=== PATIENT | female | born 1940 | race Caucasian/White ===

== ENCOUNTER → 2017-06-28 10:27 | Outpatient (CLI) | payer MEDICARE, SELFPAY ==
[2017-06-28 10:49] LABS: Basophils % 0.3 % (0.1-2.0); Eosinophils # 0.2 K/mm3 (0.0-0.4); Eosinophils % 1.8 % (0.1-12.0); Hemoglobin 14.9 g/dL (12.2-16.2); Lymphocytes # 3.2 K/mm3 (0.7-4.5); Lymphocytes % 38.2 K/mm3 (10-50); Mean Corpuscular HGB Conc 31.8 g/dL (31.8-35.4); Mean Corpuscular Volume 94.4 fl (81-99); Mean Platelet Volume 7.6 fl (7.4-10.4); Monocytes # 0.5 K/mm3 (0.1-1.0); Monocytes % 6.2 % (1.7-9.3); Neutrophils # 4.5 K/mm3 (1.8-7.8); Neutrophils % 53.5 % (37.0-80.0); Platelet Count 254 K/mm3 (142-424); Red Blood Count 4.98 M/mm3 (4.20-5.40); Red Cell Distribution Width 14.3 % (11.5-17.5); White Blood Count 8.5 K/mm3 (4.8-10.8)
[2017-06-28 13:08] LABS: Alanine Aminotransferase 33 U/L (12-78); Albumin Level 3.4 gm/dL (3.4-5.0); Albumin/Globulin Ratio 0.7 (1.1-1.8); Alkaline Phosphatase 121 U/L (46-116); Anion Gap 13.3 mEq/L (5-15); Aspartate Amino Transferase 19 U/L (15-37); Bilirubin,Total 0.4 mg/dL (0.2-1.0); Blood Urea Nitrogen 15 mg/dL (7-18); Carbon Dioxide 30 mmol/L (21.0-32.0); Chloride 107 mmol/L (98-107); Creatinine,Serum 0.76 mg/dL (0.55-1.02); Estimated Glomerular Filt Rate 74 ml/min (>60); GFR (African American) 90 ML/MIN (>60); Globulin 4.7 gm/dl (1.3-3.2); Glucose 86 mg/dL (74-106); Potassium 4.3 mmoL/L (3.5-5.1); Sodium 146 mmol/L (136-145); Total Protein,Serum 8.1 gm/dL (6.4-8.2)
[2017-06-29 12:35] LABS: Vitamin B12 1004 pg/mL (232-1245)
== END ==
PROVIDERS: PCP Internal Medicine Adolescent Medicine; Visit Provider Internal Medicine Adolescent Medicine
DX: E53.8 Deficiency of other specified B group vitamins (principal)
CPT/HCPCS: 36415; 80053; 82607; 85025

== ENCOUNTER → 2017-07-04 08:59 | Outpatient (CLI) | payer MEDICARE, SELFPAY ==
--- NOTE | 2017-07-04 09:04 | MM_ITS ---
MM Dig screening mamm BI w/CAD CAD Screening COMPARISON: Digital mammograms 06/11/2015 and 06/16/2016 INDICATION: There is a history of breast cancer in patient's aunt. There has been a previous biopsy right breast for benign disease. TECHNIQUE: Standard CC and MLO images were obtained. R2 CAD reviewed. FINDINGS: The breasts are composed primarily of fat with minimal scattered fibroglandular densities in the central portions of both breasts. There is a biopsy clip upper outer quadrant right breast as noted previously. There are few benign-appearing calcifications in each breast. There are stable benign-appearing nodular densities in each breast. There is no suspicious lesion and no suspicious microcalcifications. IMPRESSION: Stable exam with no suspicious lesion seen recommend yearly follow-up BI-RADS Category: 2 Benign Finding(s) RECOMMENDED FOLLOW-UP: 1YR - 1 YEAR FOLLOW-UP (A letter has been sent to the patient regarding results of the study.)
--- NOTE | 2017-07-04 10:00 | FL_ITS ---
EXAM: Barium swallow/esophagram. INDICATION: Dysphasia ORDERING PHYSICIAN: Nader May MD PATIENT AGE: 76 years COMPARISON: None TECHNIQUE: In the upright position the patient was observed to swallow barium in both the AP and lateral view. The cervical esophagus was examined under fluoroscopy with images obtained. The patient was then placed prone in the right anterior oblique position and was observed to swallow barium with Valsalva technique . FLUOROSCOPY TIME: 50 seconds FINDINGS: There was no evidence of aspiration. There was normal peristalsis. No mucosal abnormalities. No masses or strictures. There is indentation upon the posterior aspect of the cervical esophagus by prominent osteophytes at C4-5 and C5-6 IMPRESSION: 1. Mild indentation upon the posterior esophagus a prominent osteophytes at C4-C5 and C5-C6 2. Otherwise negative barium swallow
== END ==
PROVIDERS: PCP Internal Medicine Adolescent Medicine; Visit Provider Internal Medicine Adolescent Medicine
DX: Z12.31 Encounter for screening mammogram for malignant neoplasm of breast (principal); R13.14 Dysphagia, pharyngoesophageal phase
CPT/HCPCS: 74220; 77067

== ENCOUNTER → 2017-08-22 07:26 | Outpatient (CLI) | payer MEDICARE, SELFPAY ==
--- NOTE | 2017-08-22 07:42 | CT_ITS ---
CT chest wo con COMPARISON: None HISTORY: Shortness of breath, palpitations, chronic and productive cough TECHNIQUE: Multiaxial scans obtained from the thoracic inlet to the hemidiaphragms and were performed without IV contrast. Sagittal and coronal reformats were evaluated as well. FINDINGS: This is a fairly good inspiration. There is abundant fat within the superior mediastinum. There are couple normal-sized nodes in the prevascular space of the screw mediastinum. There is a calcified node in the pretracheal space of the screw mediastinum. The lung santiago are clear of active infiltrate. There may be minimal post inflammatory scarring left lower lobe. There are slightly accentuated bronchovascular markings in the lower lobes bilaterally possibly reflecting mild degree of chronic bronchitis. There is moderate to marked cardiomegaly with left ventricular prominence along with aortic tortuosity. There is no pulmonary congestion and is no pleural fluid. IMPRESSION: Mild chronic basilar changes along with moderate to marked cardiomegaly. Without obvious failure.
--- NOTE | 2017-08-22 07:53 | CA_ITS ---
PROCEDURE: 2-D M-mode and color Doppler study INDICATIONS FOR THE TEST: Chest pain COPD Heart Murmur Tobacco Smoking PalpitationsX Fatigue Syncope EdemaX HypertensionXDiabetes Mellitus Rheumatic Fever SOBXDOE Obesity Hyperlipidemia Family History HD Additional History PATIENT INFORMATION HEIGHT: 63 WEIGHT:201 GENDER: Female B/P:148/64 2-D/M-MODE INTERPRETATION: 2-D MEASUREMENTS OBSERVED VALUES IN CMS Right Ventricular Dimension (RVDd) 2.3 Interventricular Septum (Thickness)(IVsd) 1.3 Left Ventricular Internal Dimensions(LVIDd) 5.4 Left Ventricular Posterior Wall (Thickness)(LVPWd) 1.0 Aortic Root 3.3 Aortic Cusp Separation 2.2 Left Atrial Dimensions (LAD) 3.3 2D 1. Left atrium is mildly enlarged, left ventricle is normal size, there is mild concentric left ventricular hypertrophy, visually estimated ejection fraction 55% with no obvious regional wall motion abnormality. 2. The right atrium and right ventricle are normal size and contractility. 3. The aortic valve is minimally thickened and calcified. 4. The mitral and tricuspid valve leaflets are minimally thickened. 5. The pulmonic valve is poorly visualized. 6. No significant pericardial effusion noted. DOPPLER INTERROGATION: Doppler interrogation of the aortic, mitral and tricuspid valvular presence of mild aortic, mild mitral and tricuspid regurgitation, calculated right ventricular systolic pressure is 41 mm of mildly consistent with moderate pulmonary hypertension, grade 1 diastolic dysfunction seen with tissue Doppler evidence of raised left atrial pressure. CONCLUSION: 1. Mildly enlarged left atrium, normal left ventricular size, mild concentric left ventricular hypertrophy, visually estimated ejection fraction 55% with no obvious regional wall motion abnormality. Grade 1 diastolic dysfunction seen with tissue Doppler evidence of raised left atrial pressure. 2. Mild aortic, mild mitral and tricuspid regurgitation, calculated right ventricular systolic pressure is 41 mmHg consistent moderate pulmonary hypertension. 3. No significant pericardial effusion noted.
== END ==
PROVIDERS: PCP Internal Medicine Adolescent Medicine; Visit Provider Internal Medicine Cardiovascular Disease
DX: Z86.718 Personal history of other venous thrombosis and embolism (principal); R00.2 Palpitations; G47.9 Sleep disorder, unspecified; R05 Cough; J45.909 Unspecified asthma, uncomplicated; R60.9 Edema, unspecified; I10 Essential (primary) hypertension; R06.02 Shortness of breath
CPT/HCPCS: 71250; 93306

== ENCOUNTER → 2017-08-25 10:50 | Outpatient (CLI) | payer MEDICARE, SELFPAY | PROVIDERS: PCP Internal Medicine Adolescent Medicine; Visit Provider Internal Medicine Cardiovascular Disease | DX: R00.2 Palpitations (principal); R06.00 Dyspnea, unspecified; R05 Cough; I10 Essential (primary) hypertension | CPT/HCPCS: 93225 ==

== ENCOUNTER → 2017-11-14 07:19 | Outpatient (CLI) | payer MEDICARE, SELFPAY ==
[2017-11-14 07:40] LABS: Basophils % 0.3 % (0.1-2.0); Eosinophils # 0.2 K/mm3 (0.0-0.4); Hematocrit 47.3 % (37.0-47.0); Hemoglobin 14.9 g/dL (12.2-16.2); Lymphocytes # 3.3 K/mm3 (0.7-4.5); Lymphocytes % 41.5 K/mm3 (10-50); Mean Corpuscular HGB Conc 31.5 g/dL (31.8-35.4); Mean Corpuscular Hemoglobin 29.9 pg (27.0-31.2); Mean Platelet Volume 7.3 fl (7.4-10.4); Monocytes # 0.5 K/mm3 (0.1-1.0); Monocytes % 5.7 % (1.7-9.3); Neutrophils % 49.4 % (37.0-80.0); Platelet Count 269 K/mm3 (142-424); Red Blood Count 4.98 M/mm3 (4.20-5.40); Red Cell Distribution Width 14.1 % (11.5-17.5)
[2017-11-14 08:49] LABS: Alanine Aminotransferase 27 U/L (12-78); Albumin Level 3.3 gm/dL (3.4-5.0); Albumin/Globulin Ratio 0.7 (1.1-1.8); Alkaline Phosphatase 96 U/L (46-116); Anion Gap 10.7 mEq/L (5-15); Aspartate Amino Transferase 16 U/L (15-37); Bilirubin,Total 0.5 mg/dL (0.2-1.0); Blood Urea Nitrogen 12 mg/dL (7-18); Calcium 8.5 mg/dL (8.5-10.1); Carbon Dioxide 28 mmol/L (21.0-32.0); Chloride 106 mmol/L (98-107); Cholesterol 165 mg/dL (140-200); Creatinine,Serum 0.72 mg/dL (0.55-1.02); Estimated Glomerular Filt Rate 79 ml/min (>60); GFR (African American) 96 ML/MIN (>60); Globulin 4.7 gm/dl (1.3-3.2); Glucose 107 mg/dL (74-106); HDL Cholesterol 55 mg/dL (29-89); LDL Cholesterol 81 mg/dL (0-130); Potassium 3.7 mmoL/L (3.5-5.1); Sodium 141 mmol/L (136-145); Triglycerides 147 mg/dL (30-200); VLDL Cholesterol 29 mg/dL (0-40)
[2017-11-16 08:05] LABS: Vitamin B12 704 pg/mL (232-1245)
== END ==
PROVIDERS: Visit Provider Internal Medicine Adolescent Medicine
DX: Q67.4 Other congenital deformities of skull, face and jaw (principal); R09.89 Other specified symptoms and signs involving the circulatory and respiratory systems; E53.8 Deficiency of other specified B group vitamins; I10 Essential (primary) hypertension; Z79.899 Other long term (current) drug therapy
CPT/HCPCS: 36415; 80053; 80061; 82607; 85025

== ENCOUNTER → 2017-11-16 12:34 | Outpatient (CLI) | payer MEDICARE, SELFPAY ==
--- NOTE | 2017-11-16 | CI_ITS ---
Cerebrovascular Exam IMPRESSIONS 1. The right internal carotid artery reveals no evidence of plaque or stenosis. 2. The bilateral vertebral arteries are patent with normal antegrade flow. 3. The bilateral subclavian arteries reveal no evidence of significant stenosis. 4. Study suggests less than 20% stenosis involving the left internal carotid artery. Carotid duplex study. Complete study and Doppler flow study including spectral analysis, color and forrest scale imaging. Height: Height: 160cm. Height: 63in. Weight: Weight: 93kg. Weight: 204.6lb. Body mass index: BMI: 36.3kg/m^2. Body surface area: BSA: 2.08m^2. Location: Vascular laboratory. Patient status: Outpatient. Tables: Arterial flow: + +--------+--------+ Location V sys V ed + +--------+--------+ Right CCA - proximal 71.7cm/s 16cm/s + +--------+--------+ Right CCA - distal 50.7cm/s 15.4cm/s + +--------+--------+ Right ECA 58.5cm/s 11cm/s + +--------+--------+ Right ICA - proximal 50.7cm/s 17.3cm/s + +--------+--------+ Right ICA - mid 49.5cm/s 18.1cm/s + +--------+--------+ Right ICA - distal 70.3cm/s 24cm/s + +--------+--------+ Right vertebral 32cm/s 9.3cm/s + +--------+--------+ Left CCA - proximal 138cm/s 18.7cm/s + +--------+--------+ Left CCA - distal 64.8cm/s 19.2cm/s + +--------+--------+ Left ECA 52.4cm/s 11.9cm/s + +--------+--------+ Left ICA - proximal 52.4cm/s 21cm/s + +--------+--------+ Left ICA - mid 69.5cm/s 26.5cm/s + +--------+--------+ Left ICA - distal 74.6cm/s 25.9cm/s + +--------+--------+ Left vertebral 39.6cm/s 12.6cm/s + +--------+--------+ Velocity ratios: + + + + + + Right, V sys Right, V ed Left, V sys Left, V ed + + + + + + Max ICA/dist CCA 1.39 1.56 1.15 1.38 + + + + + + (Report amended ) Electronically signed by: Donte Marin [id number]
--- NOTE | 2017-11-16 13:41 | MR_ITS ---
MR head/brain wo/w con HISTORY: Severe headache with left-sided facial drooping ITS.REASON: FACIAL ASYMMETRY, NONINTRACTABLE HEADACHE ORDERING PHYSICIAN: Nader May MD PATIENT AGE: 76 years Comparison: None TECHNIQUE: Standard multiplanar multiecho sequences are performed without and with gadolinium enhancement. FINDINGS: No midline shift, mass effect, intracranial hemorrhage, or hydrocephalus is evident. There is mild generalized atrophy consistent with involutional changes of age. No evidence of acute infarction. No enhancing lesions. There are dilated spaces are present as incidental finding. The cerebellopontine angles, cerebellum, and brainstem are unremarkable. The pituitary and optic chiasm have an unremarkable appearance. No cerebellar ectopia evident. There are minimal periventricular ischemic gliotic changes. No mastoid effusion or sinus air-fluid level. IMPRESSION: 1. No acute intracranial findings 2. Involutional changes of age with mild atrophy, minimal periventricular ischemic gliotic change, and dilated perivascular spaces
--- NOTE | 2017-11-16 15:01 | HMH.ITSHM ---
AMLODIPINE BESILATE 5MG METOPROLOL 25MG MELOXICAM 15MG TEMAZEPAM 15MG MAGNESIUM CHLORIDE 520MG
== END ==
PROVIDERS: PCP Internal Medicine Adolescent Medicine; Visit Provider Internal Medicine Adolescent Medicine
DX: R09.89 Other specified symptoms and signs involving the circulatory and respiratory systems (principal); R51 Headache; E53.8 Deficiency of other specified B group vitamins; Q67.0 Congenital facial asymmetry
CPT/HCPCS: 70553; 93880; A9576

== ENCOUNTER 2017-12-04 12:21 | Observation (INO) ==
--- NOTE | 2017-12-04 13:40 | Consult Report ---
*Admission Date: 12/04/17 *Chief complaint: "Abscess". *History of present illness: Patient is a 76-year-old female. She had reportedly fallen about 2 weeks ago striking her left lower extremity on a pipe. She was seen in the emergency department and evaluated at that time reportedly. She was seen in her primary care provider's office today and admitted for inpatient management due to tender swelling of the left lower extremity. Surgical consultation was obtained. Review of Systems - Review of Systems Review of systems:: pertinent systems reviewed and negative unless documented below [facility] History Medical History: Reports:: Deep Vein Thrombosis, Gastrointestinal Bleed, Hypertension Denies:: Cancer, Diabetes Mellitus Type 1, Diabetes Mellitus Type 2, MRSA Other Medical History: Reports: Cataracts Laterality Cases: Bilateral: Tonsillectomy, Total Hip Replacement, Total Knee Replacement Other Surgeries: Yes: Hysterectomy-Total, Other (cholecystectomy) Amputation: No Fractures: No - *Social History Educational Level: Completed High School Smoking Status: Never smoker Alcohol Intake: never Alcohol Intake Frequency:: other Occupational Status: retired - Psychiatric History Expresses thoughts of harming self/others: None Suicide Plan Description: No Plan *Family Hx:: Coronary Artery Disease Meds Home Medications Medication Instructions Recorded Confirmed Type amlodipine 5 mg tablet 5 mg PO BID tab 08/09/17 11/22/17 History meloxicam 15 mg tablet 15 mg PO DAILY tab 08/09/17 11/22/17 History metoprolol tartrate 50 mg tablet 25 mg PO BID 08/09/17 11/22/17 History temazepam 15 mg capsule 15 mg PO QHS 08/09/17 11/22/17 History artificial tears (hypromellose) 1 drp OPHTHALMIC DAILY g 08/11/17 11/22/17 History 0.3 % eye gel calcium and magnesium carbonates 1 tab PO DAILY 08/11/17 11/22/17 History 520 mg-400 mg tablet cranberry extract 300 mg tablet 300 mg PO DAILY tab 08/11/17 11/22/17 History fluticasone 50 mcg/actuation nasal 1 spray INTRANASAL ONCE 08/11/17 11/22/17 History spray,suspension Allergies Allergy/AdvReac Type Severity Reaction Status Date / Time acetaminophen [From TYLENOL] Allergy Unknown Verified 11/22/17 12:39 Penicillins [PENICILLINS] Allergy Unknown Verified 07/04/18 12:39 valdecoxib [From BEXTRA] Allergy Unknown Verified 11/22/17 12:39 tizanidine Allergy Verified 11/22/17 12:39 ACUPRIL Allergy Unknown Uncoded 08/25/17 10:03 Exam Vital signs and Labs for Last 24 Hours: Temp Pulse Resp BP Pulse Ox 97.9 F 67 18 155/92 97 12/04/17 12:42 12/04/17 12:42 12/04/17 12:42 12/04/17 12:42 12/04/17 12:42 I & O for Last 24 hours: Intake & Output 12/02/17 12/03/17 12/04/17 12/05/17 11:59 11:59 11:59 11:59 Weight 205 lb 3 oz - Constitutional no acute distress - *Routine Extremities Exam Comments: She has quite significant extensive bruising to the left lower extremity inferior to the knee to the ankle area. There is some mild to moderate soft tissue edema. She has normal palpable pedal pulses. In the lateral aspect of the left lower extremity inferior to the knee there is an obvious relatively focal swelling which measures estimated up to 8-10 cm. This is somewhat boggy. No obvious cellulitis. Assessment and Plan - Assessment and plan all Dx Assessment and Plan for all problems:: This is to be most consistent with traumatic extremity hematoma and bruising. There does not appear to be any definite abscess. I will discuss the case with orthopedic surgery.
[2017-12-04 14:07] LABS: Basophils % 0.3 % (0.1-2.0); Eosinophils # 0.2 K/mm3 (0.0-0.4); Eosinophils % 2.4 % (0.1-12.0); Hemoglobin 13.8 g/dL (12.2-16.2); Lymphocytes # 3.3 K/mm3 (0.7-4.5); Lymphocytes % 35.7 K/mm3 (10-50); Mean Corpuscular HGB Conc 31.4 g/dL (31.8-35.4); Mean Corpuscular Hemoglobin 29.8 pg (27.0-31.2); Mean Corpuscular Volume 94.7 fl (81-99); Monocytes # 0.7 K/mm3 (0.1-1.0); Monocytes % 7.2 % (1.7-9.3); Neutrophils # 4.9 K/mm3 (1.8-7.8); Neutrophils % 54.3 % (37.0-80.0); Platelet Count 267 K/mm3 (142-424); Red Blood Count 4.64 M/mm3 (4.20-5.40); Red Cell Distribution Width 14.2 % (11.5-17.5); White Blood Count 9.1 K/mm3 (4.8-10.8)
--- NOTE | 2017-12-04 14:31 | Consult Report ---
*Admission Date: 12/04/17 *Chief complaint: Left lower extremity edema and ecchymosis and tenderness *History of present illness: Patient is a 76-year-old female. Gives a history of having fallen some 2 weeks ago at which time she struck the left lower extremity on a pipe. She was seen in the ER for swelling and ecchymosis. She has noted progression of the bruising down the leg. She recalls being on aspirin 81 mg daily at the time of the injury but stopped this after the injury to help minimize propagation of the bruising. Both she and her daughter feel an area of swelling anterolaterally on the lower leg is resolving slowly and feel that it is slightly improved today compared to yesterday. The patient was admitted Dr. May and was seen by Dr. Narayanan in consultation who requested that I evaluate her from an orthopedic active. Of note is that the patient has a history of bilateral total knee replacements and bilateral total hip replacements. She denies any pain with movement of her left knee or hip and also denies pain with ankle/subtalar movement. [facility] History Medical History: Reports:: Deep Vein Thrombosis, Gastrointestinal Bleed, Hypertension Denies:: Cancer, Diabetes Mellitus Type 1, Diabetes Mellitus Type 2, MRSA Other Medical History: Reports: Cataracts Laterality Cases: Bilateral: Tonsillectomy, Total Hip Replacement, Total Knee Replacement Other Surgeries: Yes: Hysterectomy-Total, Other (cholecystectomy) Amputation: No Fractures: No - *Social History Educational Level: Completed High School Smoking Status: Never smoker Alcohol Intake: never Alcohol Intake Frequency:: other Occupational Status: retired - Psychiatric History Expresses thoughts of harming self/others: None Suicide Plan Description: No Plan *Family Hx:: Coronary Artery Disease Meds Home Medications Medication Instructions Recorded Confirmed Type amlodipine 5 mg tablet 5 mg PO BID tab 08/09/17 12/04/17 History meloxicam 15 mg tablet 15 mg PO DAILY tab 08/09/17 12/04/17 History metoprolol tartrate 50 mg tablet 25 mg PO BID 08/09/17 12/04/17 History temazepam 15 mg capsule 15 mg PO QHS 08/09/17 12/04/17 History artificial tears (hypromellose) 1 drp OPHTHALMIC DAILY g 08/11/17 12/04/17 History 0.3 % eye gel calcium and magnesium carbonates 1 tab PO DAILY 08/11/17 12/04/17 History 520 mg-400 mg tablet cranberry extract 300 mg tablet 300 mg PO DAILY tab 08/11/17 12/04/17 History fluticasone 50 mcg/actuation nasal 1 spray INTRANASAL ONCE 08/11/17 12/04/17 History spray,suspension Allergies Allergy/AdvReac Type Severity Reaction Status Date / Time acetaminophen [From TYLENOL] Allergy Unknown Verified 11/22/17 12:39 Penicillins [PENICILLINS] Allergy Unknown Verified 11/22/17 12:39 valdecoxib [From BEXTRA] Allergy Unknown Verified 11/22/17 12:39 tizanidine Allergy Verified 11/22/17 12:39 ACUPRIL Allergy Unknown Uncoded 08/25/17 10:03 Exam Vital signs and Labs for Last 24 Hours: Temp Pulse Resp BP Pulse Ox 97.9 F 67 18 155/92 97 12/04/17 12:42 12/04/17 12:42 12/04/17 12:42 12/04/17 12:42 12/04/17 12:42 Laboratory Results - last 24 hr 12/04/17 13:20: WBC 9.1, RBC 4.64, Hgb 13.8, Hct 44.0, MCV 94.7, MCH 29.8, MCHC 31.4 L, RDW 14.2, Plt Count 267, MPV 8.0, Neut % (Auto) 54.3, Lymph % (Auto) 35.7, [place] % (Auto) 7.2, Eos % (Auto) 2.4, Baso % (Auto) 0.3, Neut # (Auto) 4.9 , Lymph # (Auto) 3.3, [place] # (Auto) 0.7, Eos # (Auto) 0.2, Baso # (Auto) 0.0 I & O for Last 24 hours: Intake & Output 12/02/17 12/03/17 12/04/17 12/05/17 11:59 11:59 11:59 11:59 Weight 205 lb 3 oz Narrative: Orthopedic examination is limited to the left lower extremity. She has a well- healed surgical incision directly over the left knee consistent with an anterior approach for total knee arthroplasty. Knee range of motion is from approximately 3 hyperextension to 125 of flexion. The knee is stable ligamentously. There is no erythema, cellulitis, ecchymosis, fluctuance, or skin compromising involving the knee itself. There is no evidence of effusion in the knee or prepatellar/suprapatellar bursitis involving the left knee. Skin is intact without evidence of abrasions or superficial infection The patient also moves her left ankle and left subtalar joint without any pain or compromise.tensive ecchymosis present in the left lower extremity which appears to be consistent with the patient's history. There is an area of what appears to be a fluctuant hematoma anterolaterally about the junction of the proximal and mid third. There is no drainage or compromise of the subcutaneous tissues to indicate a pending drainage tract that I can discern. The rubor he is consistent with resolving hematoma and does not have a clinical appearance of an active infection. There is mild tenderness to palpation. There is also extensive ecchymosis further down the leg involving the anterolateral aspect of the left foot and ankle consistent with ecchymosis which has migrated with gravity. X-rays of the tibia show no evident fracture or bone pathology. There is extensive soft tissue swelling. A cruciate retaining total knee replacement is in place and shows no evidence of loosening IMPRESSION hematoma, slowly resolving, left lower extremity without clinical evidence of infection. There does not appear to be any compromise of her joint arthroplasties and I do not find clinical evidence of a DVT. RECOMMENDATIONS at this point, I believe the hematoma will resolve on its own but this will likely take several weeks. With no evidence of infection, I would be hesitant to attempt any aspiration due to the relatively low success rate and resolving hematomas and the possibility that that may by itself actually introducing infection. There may be a role for the lymphedema clinic here with possibly there are dual polarity device to help mobilize some of the fluid more proximally. Will discuss with Dr. May and follow in house. Results - Labs Result Diagrams: 12/04/17 13:20 Labs: Abnormal lab results 12/04/17 Range/Units 13:20 MCHC 31.4 L (31.8-35.4) g/dL H & H 12/04/17 Range/Units 13:20 Hgb 13.8 (12.2-16.2) g/dL Hct 44.0 (37.0-47.0) % All other labs normal.
[2017-12-04 15:42] LABS: Anion Gap 9.9 mEq/L (5-15)
[2017-12-04 15:44] LABS: Potassium 2.9 mmoL/L (3.5-5.1)
--- NOTE | 2017-12-04 18:30 | History & Physical Report ---
*Admission Date: 12/04/17 *Chief complaint: left leg pain and swelling *History of present illness: Patient is a 76-year-old female. Gives a history of having fallen some 2 weeks ago at which time she struck the left lower extremity on a pipe. She was seen in the ER for swelling and ecchymosis. She has noted progression of the bruising down the leg. She recalls being on aspirin 81 mg daily at the time of the injury but stopped this after the injury to help minimize propagation of the bruising. Both she and her daughter feel an area of swelling anterolaterally on the lower leg is resolving slowly and feel that it is slightly improved today compared to yesterday. Patient has had no fever, but she and her have been concerned about this area of swelling and whether or not it needs "surgery." Of note is that the patient has a history of bilateral total knee replacements and bilateral total hip replacements. She denies any pain with movement of her left knee or hip and also denies pain with ankle/subtalar movement. [facility] History I have reviewed the patient's past medical history: Yes Medical History: Reports:: Deep Vein Thrombosis, Gastrointestinal Bleed, Hypertension Denies:: Cancer, Diabetes Mellitus Type 1, Diabetes Mellitus Type 2, MRSA Other Medical History: Reports: Cataracts Laterality Cases: Bilateral: Tonsillectomy, Total Hip Replacement, Total Knee Replacement Other Surgeries: Yes: Hysterectomy-Total, Other (cholecystectomy) Amputation: No Fractures: No - *Social History Educational Level: Completed High School Smoking Status: Never smoker Alcohol Intake: never Alcohol Intake Frequency:: other Occupational Status: retired - Psychiatric History Expresses thoughts of harming self/others: None Suicide Plan Description: No Plan *Family Hx:: Coronary Artery Disease Review of Systems - Review of Systems Review of systems:: pertinent systems reviewed and negative unless documented below Meds Home Medications Medication Instructions Recorded Confirmed Type amlodipine 5 mg tablet 5 mg PO BID tab 08/09/17 12/04/17 History meloxicam 15 mg tablet 15 mg PO DAILY tab 08/09/17 12/04/17 History metoprolol tartrate 50 mg tablet 25 mg PO BID 08/09/17 12/04/17 History temazepam 15 mg capsule 15 mg PO HS 08/09/17 12/04/17 History cranberry extract 300 mg tablet 300 mg PO DAILY tab 08/11/17 12/04/17 History fluticasone 50 mcg/actuation nasal 2 spry INTRANASAL DAILY 08/11/17 12/04/17 History spray,suspension Magnesium Oxide [Magnesium] 500 mg PO DAILY 12/04/17 12/04/17 History Omeprazole [Omeprazole 20mg 20 mg PO DAILY 12/04/17 12/04/17 History Capsule] Allergies Allergy/AdvReac Type Severity Reaction Status Date / Time acetaminophen [From TYLENOL] Allergy Unknown Verified 11/22/17 12:39 Penicillins [PENICILLINS] Allergy Unknown Verified 11/22/17 12:39 valdecoxib [From BEXTRA] Allergy Unknown Verified 11/22/17 12:39 tizanidine Allergy Verified 11/22/17 12:39 ACUPRIL Allergy Unknown Uncoded 08/25/17 10:03 Exam Vital signs and Labs for Last 24 Hours: Temp Pulse Resp BP Pulse Ox 98.7 F 69 18 137/70 98 12/04/17 16:00 12/04/17 16:00 12/04/17 16:00 12/04/17 16:00 12/04/17 16:00 Laboratory Results - last 24 hr 12/04/17 13:20: WBC 9.1, RBC 4.64, Hgb 13.8, Hct 44.0, MCV 94.7, MCH 29.8, MCHC 31.4 L, RDW 14.2, Plt Count 267, MPV 8.0, Neut % (Auto) 54.3, Lymph % (Auto) 35.7, [place] % (Auto) 7.2, Eos % (Auto) 2.4, Baso % (Auto) 0.3, Neut # (Auto) 4.9 , Lymph # (Auto) 3.3, [place] # (Auto) 0.7, Eos # (Auto) 0.2, Baso # (Auto) 0.0 12/04/17 15:24: Sodium 146 H, Potassium 2.9 L*, Chloride 109 H, Carbon Dioxide 30, Anion Gap 9.9, BUN 11, Creatinine 0.70, Estimated Creat Clear 71, Estimated GFR 82, Est GFR ( Amer) 99, Glucose 122 H, Calcium 9.0 I & O for Last 24 hours: Intake & Output 12/02/17 12/03/17 12/04/1717/18 11:59 11:59 11:59 11:59 Intake Total 50 / 50 Balance 50 / 50 Weight 205 lb 3 oz Narrative: Patient is pleasant, alert. Heart rate regular, lungs are clear, abdomen soft, hips and knees with normal range of motion. Large area of ecchymosis with fluctuance on the left anterior sharma as noted in nursing pictures. Some redness around the lower aspect of the sharma. No significant streaking down the foot. Ankle movement is normal. H&P: Result - Labs Labs: Short CBC 12/04/17 Range/Units 13:20 WBC 9.1 (4.8-10.8) K/mm3 Hgb 13.8 (12.2-16.2) g/dL Hct 44.0 (37.0-47.0) % Plt Count 267 (142-424) K/mm3 BMP 12/04/17 15:24 Sodium 146 H Potassium 2.9 L* Chloride 109 H Carbon Dioxide 30 BUN 11 Creatinine 0.70 Glucose 122 H Calcium 9.0 Assessment and Plan (1) Hematoma of left lower extremity Current visit: No Status: Acute Qualifiers: Encounter type: initial encounter Qualified Code(s): S80.12XA - Contusion of left lower leg, initial encounter Category: Medical Code(s): S80.12XA - Contusion of left lower leg, initial encounter Possible infected hematoma. Admit to hospital for 1 dose of IV antibiotic. Labs as noted. Hypokalemia noted. Will be treated. Appreciate surgery and orthopedic input.
[2017-12-05 06:17] LABS: Basophils % 0.3 % (0.1-2.0); Eosinophils # 0.3 K/mm3 (0.0-0.4); Eosinophils % 3.3 % (0.1-12.0); Hematocrit 42.8 % (37.0-47.0); Hemoglobin 13.6 g/dL (12.2-16.2); Lymphocytes # 2.6 K/mm3 (0.7-4.5); Lymphocytes % 33.2 K/mm3 (10-50); Mean Corpuscular HGB Conc 31.7 g/dL (31.8-35.4); Mean Corpuscular Hemoglobin 29.9 pg (27.0-31.2); Mean Corpuscular Volume 94.2 fl (81-99); Mean Platelet Volume 7.5 fl (7.4-10.4); Monocytes # 0.6 K/mm3 (0.1-1.0); Neutrophils # 4.4 K/mm3 (1.8-7.8); Neutrophils % 56.2 % (37.0-80.0); Platelet Count 277 K/mm3 (142-424); Red Blood Count 4.54 M/mm3 (4.20-5.40); Red Cell Distribution Width 14.3 % (11.5-17.5); White Blood Count 7.9 K/mm3 (4.8-10.8)
[2017-12-05 07:01] LABS: Anion Gap 12.9 mEq/L (5-15); Calcium 8.6 mg/dL (8.5-10.1); Potassium 3.9 mmoL/L (3.5-5.1)
--- NOTE | 2017-12-05 07:51 | Discharge Summary ---
General - General Admission date:: 12/04/17 Discharge date: 12/05/17 HPI HPI: Patient is a 76-year-old female. Gives a history of having fallen some 2 weeks ago at which time she struck the left lower extremity on a pipe. She was seen in the ER for swelling and ecchymosis. She has noted progression of the bruising down the leg. She recalls being on aspirin 81 mg daily at the time of the injury but stopped this after the injury to help minimize propagation of the bruising. Both she and her daughter feel an area of swelling anterolaterally on the lower leg is resolving slowly and feel that it is slightly improved today compared to yesterday. Patient has had no fever, but she and her have been concerned about this area of swelling and whether or not it needs "surgery." Of note is that the patient has a history of bilateral total knee replacements and bilateral total hip replacements. She denies any pain with movement of her left knee or hip and also denies pain with ankle/subtalar movement. Hospital Course Hospital Course: Patient was admitted, placed on IV ceftriaxone empirically. General surgery and orthopedics were consulted because of the location of the hematoma and the proximity to her artificial knee joint. Consultations reviewed and appreciated. I personally spoke with both Dr. Narayanan and Dr. Das. They recommended no intervention at this time given the fairly low risk/ evidence of significant cellulitis, and Dr. Das suggested physical therapy evaluation for "reverse polarity compression" which sounded reasonable. This was done and the patient was treated with a wrapping/pressure device through the night. This morning she feels much improved with less pain, her pain is been managed with OTC doses of ibuprofen. This morning she is talkative, the leg is much less swollen. See exam notes- plan will be to discharge home with 5 days of antibiotics. Continued physical therapy for compression therapy and close follow-up in the office. Objective Vital signs: Temp Pulse Resp BP Pulse Ox 98.2 F 59 L 16 129/60 95 12/05/17 04:27 12/05/17 04:27 12/05/17 04:27 12/05/17 04:27 12/05/17 04:27 Narrative: Cardiopulmonary exam unchanged from yesterday. She is pleasant, alert and talkative. Her leg is less swollen and when the dressing was removed the hematoma area is smaller, there is still a 3 cm x 4 cm area of swelling but certainly vastly improved, some redness distal to the hematoma but certainly nothing that has worsened. No spreading or red streaking above the hematoma. Circulatory exam of the foot below the hematoma is unremarkable with good capillary refill. Able to move her knee and ankle without problems. Results Labs on day of discharge: Labs from last 24 hours 12/05/17 12/05/17 12/04/17 05:36 05:36 15:24 WBC 7.9 RBC 4.54 Hgb 13.6 Hct 42.8 MCV 94.2 MCH 29.9 MCHC 31.7 L RDW 14.3 Plt Count 277 MPV 7.5 Neut % (Auto) 56.2 Lymph % (Auto) 33.2 Henderson % (Auto) 7.0 Eos % (Auto) 3.3 Baso % (Auto) 0.3 Neut # (Auto) 4.4 Lymph # (Auto) 2.6 Henderson # (Auto) 0.6 Eos # (Auto) 0.3 Baso # (Auto) 0.0 Sodium 142 146 H Potassium 3.9 D 2.9 L* Chloride 107 109 H Carbon Dioxide 26 30 Anion Gap 12.9 9.9 BUN 9 11 Creatinine 0.68 0.70 Estimated Creat Clear 72 71 Estimated GFR 84 82 Est GFR ( Amer) 102 99 Glucose 101 122 H Calcium 8.6 9.0 12/04/17 13:20 WBC 9.1 RBC 4.64 Hgb 13.8 Hct 44.0 MCV 94.7 MCH 29.8 MCHC 31.4 L RDW 14.2 Plt Count 267 MPV 8.0 Neut % (Auto) 54.3 Lymph % (Auto) 35.7 Henderson % (Auto) 7.2 Eos % (Auto) 2.4 Baso % (Auto) 0.3 Neut # (Auto) 4.9 Lymph # (Auto) 3.3 Henderson # (Auto) 0.7 Eos # (Auto) 0.2 Baso # (Auto) 0.0 Sodium Potassium Chloride Carbon Dioxide Anion Gap BUN Creatinine Estimated Creat Clear Estimated GFR Est GFR ( Amer) Glucose Calcium DS: Diagnosis - Discharge Diagnosis (1) Hematoma of left lower extremity Status: Acute Discharge Plan - Patient Discharge Instructions ACTIVITY: Ambulate as tolerated DIET: continue same diet - Follow up Plan Follow up with: Shawn Morejon MD [Staff Physician] - 12/12/17 Unknown provider or service follow up:: 12/05/17 07:54 Physical therapy at [facility] as an outpatient on 12/06/17 for continued hematoma treatment Disposition: Home, Self-Usp Medications: Home Medications Medication Instructions Recorded Confirmed Type amlodipine 5 mg tablet 5 mg PO BID tab 08/09/17 12/04/17 History meloxicam 15 mg tablet 15 mg PO DAILY tab 08/09/17 12/04/17 History metoprolol tartrate 50 mg tablet 25 mg PO BID 08/09/17 12/04/17 History temazepam 15 mg capsule 15 mg PO HS 08/09/17 12/04/17 History cranberry extract 300 mg tablet 300 mg PO DAILY tab 08/11/17 12/04/17 History fluticasone 50 mcg/actuation nasal 2 spry INTRANASAL DAILY 08/11/17 12/04/17 History spray,suspension Magnesium Oxide [Magnesium] 500 mg PO DAILY 12/04/17 12/04/17 History Omeprazole [Omeprazole 20mg 20 mg PO DAILY 12/04/17 12/04/17 History Capsule] Prescriptions/Medication Reconciliation: New Cefdinir [Omnicef 300mg Capsule] 300 mg PO BID #10 cap Continue meloxicam 15 mg tablet 15 mg PO DAILY tab metoprolol tartrate 50 mg tablet 25 mg PO BID temazepam 15 mg capsule 15 mg PO HS fluticasone 50 mcg/actuation nasal spray,suspension 2 spry INTRANASAL DAILY cranberry extract 300 mg tablet 300 mg PO DAILY tab amlodipine 5 mg tablet 5 mg PO BID tab Magnesium Oxide [Magnesium] 500 mg PO DAILY Omeprazole [Omeprazole 20mg Capsule] 20 mg PO DAILY
[2017-12-05 07:59] VITALS: BP 136/66
== END 2017-12-05 09:40 | disposition home or self-care (01) ==
LOC: 2ND
PROVIDERS: ADMIT Internal Medicine Adolescent Medicine; ATTEND Internal Medicine Adolescent Medicine
CPT/HCPCS: 36415; 76882; 80048; 85025; 87040; 97140; G0378

== ENCOUNTER 2017-12-29 11:00 | Outpatient (RCR) | payer MEDICARE, SELFPAY ==
--- NOTE | 2017-12-07 10:57 | HMH.PTOPWND ---
Rehab Outpt Wound Evaluation Rehab OP Wound Evaluation Start: 12/07/17 10:46 Freq: Status: Active Protocol: Document 12/07/17 10:46 MISHA (Rec: 12/07/17 10:57 PHORUSHA [id number]) Electronically Signed By Kelton Gaviria, PT 12/07/17 10:46 Subjective/History History History Pt is 76 yof who presents ~ 2 wks S/P fall at home with left lower leg hematoma. She reports very tender to palpation throughout the lateral lower leg, especially slightly superior to the ankle . She reports no c/o numbness or tingling, and only mild pain at rest. She feels the hematoma has improved with the compression therapy she received as an inpatient. SHe has hx of Fl[place] GRAY and TKA, HTN and CCY. Lymphedema Eval Classification of Lymphedema Secondary Lymphedema Yes Post Traumatic Lymphedema Yes: Hematoma Stage of Lymphedema Lymphedema stages Stage I (Pitting edema, reduces w/ elevation, no fibrosis) Skin Changes Taut, Shiny Skin Yes Redness Yes Discoloration of Skin Yes Pain Scale Pain Scale (0-10) 5 Affected Extremities Areas Affected by Lymphedema/Edema Left Lower Extremity Manual Lymphatic Drainage Treatment Area MLD Treatment Area Left Lower Extremity Wound Problems/Impairments Impairments Problems/Impairmments Palpation Tenderness Impaired Walking Increased Edema Lymphedema Present Subjective C/O Pain Impaired Self Care/Self Management Prognosis Rehab Potential Good Clinical Impression Consistent with Diagnosis Yes Short Term Goals Number of Weeks 4 Decreased Palpation Tenderness Yes: to min Decrease Subjective C/O Pain Yes: /10 Patient to Understand Lymphedema Yes Treatment and Exercises Decrease Girth Measurments by (cm) Yes: by 5 cm Custodial Goals Number of Weeks 8 Decreased Palpation Tenderness Yes: to none Decrease Subjective C/O Pain Yes: 1/ Patient to be Ind w/ HEP Yes Patient to Adhere Lymphedema Precautions Yes Decrease Girth Measurments by (cm) Yes: by 15 cm Outpatient Therapy Plan of Care Treatment Plan May Include Therapeutic Exercise Including
== END 2017-12-29 11:01 | disposition home or self-care (01) ==
LOC: PT 11:00
PROVIDERS: PCP Internal Medicine Adolescent Medicine; Visit Provider Internal Medicine Adolescent Medicine
DX: S80.12XA Contusion of left lower leg, initial encounter (principal)
CPT/HCPCS: 97140; 97162; 97760

== ENCOUNTER → 2018-03-12 07:11 | Outpatient (CLI) | payer MEDICARE, SELFPAY ==
--- NOTE | 2018-03-12 07:14 | CA_ITS ---
PROCEDURE: 2-D M-mode and color Doppler study INDICATIONS FOR THE TEST: Chest pain COPD Heart Murmur Tobacco Smoking Palpitations Fatigue Syncope Edema HypertensionXDiabetes Mellitus Rheumatic Fever SOBXDOEXObesityXHyperlipidemia Family History HD Additional History ABN GXT ABN EKG PATIENT INFORMATION HEIGHT: 63 WEIGHT:202 GENDER: Female B/P:147/76 2-D/M-MODE INTERPRETATION: 2-D MEASUREMENTS OBSERVED VALUES IN CMS Right Ventricular Dimension (RVDd) 1.4 Interventricular Septum (Thickness)(IVsd) 1.3 Left Ventricular Internal Dimensions(LVIDd) 5.1 Left Ventricular Posterior Wall (Thickness)(LVPWd) 1.2 Aortic Root 2.9 Aortic Cusp Separation 1.9 Left Atrial Dimensions (LAD) 2.9 2D 1. Left atrium is mildly enlarged, left ventricle is normal size, mild concentric left ventricular hypertrophy, visually estimated ejection fraction 55% with no regional wall motion abnormality. 2. The right atrium and right ventricle are normal size and contractility. 3. The aortic valve is minimally thickened and fibrosed. 4. The mitral and tricuspid valve leaflets are minimally thickened. 5. The pulmonic valve is poorly visualized. 6. No significant pericardial effusion noted. DOPPLER INTERROGATION: Doppler interrogation of the aortic, mitral and tricuspid valvular presence of mild mitral and tricuspid regurgitation, tricuspid regurgitation jet velocity is inadequate for calculation of the right ventricular systolic pressure, mild aortic insufficiency also seen. Grade 1 diastolic dysfunction seen with tissue Doppler evidence of raised left atrial pressure. CONCLUSION: 1. Mildly enlarged left atrium, normal left ventricular size, mild concentric left ventricular hypertrophy, visually estimated ejection fraction 55% with no regional wall motion abnormality, grade 1 diastolic dysfunction seen with tissue Doppler evidence of raised left atrial pressure. 2. Mild aortic, mild mitral and tricuspid regurgitation 3. No significant pericardial effusion noted.
--- NOTE | 2018-03-12 07:14 | NM_ITS ---
CARDIOLITE SPECT MYOCARDIAL PERFUSION SCAN, REST AND STRESS: EXERCISE STRESS [facility] REVIEW QGS EF AND WALL MOTION EVALUATION: QPS - PERFUSION EVALUATION HISTORY: SOB, HTN DOSE: 10.89 mCi technetium 99m mibi intravenously at rest followed by 29.9 mCi technetium 99m mibi following the intravenous ministration of 0.4 mg of Lexiscan. Resting blood pressure is 152/82. Stress blood pressure 154/83. FINDINGS: Ejection fraction is calculated to be 59%. Decreased activity in the anterior wall with both stress and rest. Gated images calculated ejection fraction of 59% with normal wall motion IMPRESSION: This test is most consistent with breast attenuation. Clinical correlation is advised. Anterior wall disease cannot be excluded on this test.
--- NOTE | 2018-03-12 07:36 | HMH.ITSHM ---
Current Home Medications as stated by this patient Yadi Royal or outbound call center representative. []AMLODIPINE METOPROLOL MELOXICAM [email or web address]
== END ==
PROVIDERS: PCP Internal Medicine Adolescent Medicine; Visit Provider Internal Medicine
DX: R06.00 Dyspnea, unspecified (principal); R53.83 Other fatigue; R94.31 Abnormal electrocardiogram [ECG] [EKG]
CPT/HCPCS: 78452; 93017; 93306; A9502; J2785

== ENCOUNTER → 2018-04-26 10:53 | Outpatient (CLI) | payer MEDICARE, SELFPAY ==
--- NOTE | 2018-04-26 10:55 | XR_ITS ---
XR foot wt bearing LT 3V HISTORY: ITS.REASON: pain ORDERING PHYSICIAN: Ivet Issa DPM PATIENT AGE: 77 years COMPARISON: None FINDINGS: There is mild hallux valgus. There is some deformity involving the distal aspect of the first metatarsal consistent with prior bunionectomy. There is minimal lateral translation of the proximal phalanx of the great toe by approximately 3 mm. There is a small focal area of cortical thickening involving the mid shaft of the second metatarsal medially nonspecific but could be seen with a old fracture. No acute fracture or dislocation. No lytic or blastic change. IMPRESSION: 1. Prior bunionectomy of the first metatarsal with mild hallux valgus. 2. Possible old fracture of the midshaft of the second metatarsal
--- NOTE | 2018-04-26 10:55 | XR_ITS ---
XR foot wt bearing RT 3V HISTORY: ITS.REASON: Pain ORDERING PHYSICIAN: Ivet Issa DPM PATIENT AGE: 77 years COMPARISON: None FINDINGS: Mild hallux valgus noted with mild lateral displacement of the proximal phalanx of 3 mm. Suspected prior osteotomy at the distal aspect of first metatarsal. Please correlate with surgical history. There are mild osteoarthritic changes of the first MTP joint. No other significant anomalies are evident. 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
== END ==
PROVIDERS: PCP Internal Medicine Adolescent Medicine; Visit Provider Podiatrist
DX: M79.672 Pain in left foot (principal); M79.671 Pain in right foot
CPT/HCPCS: 73630

== ENCOUNTER → 2018-07-20 08:24 | Outpatient (CLI) | payer MEDICARE, SELFPAY ==
[2018-07-20 09:11] LABS: Basophils % 0.1 % (0.1-2.0); Eosinophils # 0.2 K/mm3 (0.0-0.4); Eosinophils % 2.2 % (0.1-12.0); Hematocrit 47.5 % (37.0-47.0); Hemoglobin 15.1 g/dL (12.2-16.2); Lymphocytes # 3.2 K/mm3 (0.7-4.5); Lymphocytes % 45.4 % (10-50); Mean Corpuscular HGB Conc 31.7 g/dL (31.8-35.4); Mean Corpuscular Hemoglobin 30.7 pg (27.0-31.2); Mean Corpuscular Volume 96.7 fl (81-99); Mean Platelet Volume 7.6 fl (7.4-10.4); Monocytes # 0.4 K/mm3 (0.1-1.0); Monocytes % 5.7 % (1.7-9.3); Neutrophils # 3.3 K/mm3 (1.8-7.8); Neutrophils % 46.5 % (37.0-80.0); Platelet Count 247 K/mm3 (142-424); Red Blood Count 4.91 M/mm3 (4.20-5.40); Red Cell Distribution Width 14.9 % (11.5-17.5)
[2018-07-20 10:00] LABS: Alanine Aminotransferase 29 U/L (12-78); Albumin Level 3.3 gm/dL (3.4-5.0); Albumin/Globulin Ratio 0.6 (1.1-1.8); Alkaline Phosphatase 106 U/L (46-116); Anion Gap 9.8 mEq/L (5-15); Aspartate Amino Transferase 17 U/L (15-37); Bilirubin,Total 0.5 mg/dL (0.2-1.0); Blood Urea Nitrogen 13 mg/dL (7-18); Calcium 9.1 mg/dL (8.5-10.1); Carbon Dioxide 30 mmol/L (21.0-32.0); Chloride 104 mmol/L (98-107); Chol/HDL Ratio 2.9 (1-3.5); Cholesterol 175 mg/dL (140-200); Creatinine,Serum 0.81 mg/dL (0.55-1.02); Estimated Glomerular Filt Rate 69 ml/min (>60); GFR (African American) 83 ML/MIN (>60); Globulin 5.1 gm/dl (1.3-3.2); Glucose 109 mg/dL (74-106); HDL Cholesterol 60 mg/dL (29-89); LDL Cholesterol 94 mg/dL (0-130); Potassium 3.8 mmoL/L (3.5-5.1); Sodium 140 mmol/L (136-145); Total Protein,Serum 8.4 gm/dL (6.4-8.2); Triglycerides 103 mg/dL (30-200); VLDL Cholesterol 21 mg/dL (0-40)
[2018-07-20 10:57] LABS: Hemoglobin A1C 6.1 % (0.0-7.0)
== END ==
PROVIDERS: Visit Provider Internal Medicine Adolescent Medicine
DX: I10 Essential (primary) hypertension (principal); R73.9 Hyperglycemia, unspecified
CPT/HCPCS: 36415; 80053; 80061; 83036; 85025

== ENCOUNTER → 2018-08-20 09:32 | Outpatient (CLI) | payer MEDICARE, SELFPAY ==
--- NOTE | 2018-08-20 09:36 | MM_ITS ---
MM Dig screening mamm BI w/CAD CAD Screening COMPARISON: Digital mammograms with CAD 07/04/2017 and outside digital mammograms with CAD 06/16/2016 INDICATION: There is no personal or family history of breast cancer. There has been previous biopsy right breast for benign disease. TECHNIQUE: Standard CC and MLO images were obtained. R2 CAD reviewed. FINDINGS: The breasts are composed primarily of fat with scattered fibroglandular densities throughout each breast. Again noted is a biopsy clip upper outer quadrant right breast adjacent to a nodular density. There are couple of other stable nodular benign-appearing densities in each breast. There are few scattered benign-appearing microcalcifications in each breast. There is no suspicious lesion and there are no suspicious microcalcifications. IMPRESSION: Stable exam with no suspicious lesion seen BI-RADS Category: 2 Benign Finding(s) RECOMMENDED FOLLOW-UP: 1YR - 1 YEAR FOLLOW-UP (A letter has been sent to the patient regarding results of the study.)
== END ==
PROVIDERS: PCP Internal Medicine Adolescent Medicine; Visit Provider Internal Medicine Adolescent Medicine
DX: Z12.31 Encounter for screening mammogram for malignant neoplasm of breast (principal)
CPT/HCPCS: 77067

== ENCOUNTER → 2018-10-31 08:01 | Outpatient (CLI) | payer MEDICARE, SELFPAY ==
[2018-10-31 09:18] LABS: Basophils % 0.4 % (0.1-2.0); Eosinophils # 0.2 K/mm3 (0.0-0.4); Eosinophils % 3.8 % (0.1-12.0); Hematocrit 41.8 % (37.0-47.0); Hemoglobin 13.5 g/dL (12.2-16.2); Lymphocytes # 2.8 K/mm3 (0.7-4.5); Lymphocytes % 44.4 % (10-50); Mean Corpuscular HGB Conc 32.4 g/dL (31.8-35.4); Mean Corpuscular Hemoglobin 29.7 pg (27.0-31.2); Mean Corpuscular Volume 91.8 fl (81-99); Mean Platelet Volume 7.8 fl (7.4-10.4); Monocytes # 0.5 K/mm3 (0.1-1.0); Monocytes % 7.5 % (1.7-9.3); Neutrophils # 2.8 K/mm3 (1.8-7.8); Neutrophils % 43.9 % (37.0-80.0); Platelet Count 228 K/mm3 (142-424); Red Blood Count 4.55 M/mm3 (4.20-5.40); Red Cell Distribution Width 14.5 % (11.5-17.5); White Blood Count 6.3 K/mm3 (4.8-10.8)
[2018-10-31 10:30] LABS: Alanine Aminotransferase 26 U/L (12-78); Albumin Level 3.1 gm/dL (3.4-5.0); Albumin/Globulin Ratio 0.7 (1.1-1.8); Alkaline Phosphatase 114 U/L (46-116); Anion Gap 12.8 mEq/L (5-15); Aspartate Amino Transferase 17 U/L (15-37); Bilirubin,Total 0.5 mg/dL (0.2-1.0); Blood Urea Nitrogen 12 mg/dL (7-18); Calcium 8.4 mg/dL (8.5-10.1); Carbon Dioxide 27 mmol/L (21.0-32.0); Chloride 106 mmol/L (98-107); Chol/HDL Ratio 3.1 (1-3.5); Cholesterol 140 mg/dL (140-200); Creatinine,Serum 0.77 mg/dL (0.55-1.02); Estimated Glomerular Filt Rate 73 ml/min (>60); GFR (African American) 88 ML/MIN (>60); Globulin 4.4 gm/dl (1.3-3.2); Glucose 106 mg/dL (74-106); HDL Cholesterol 45 mg/dL (29-89); LDL Cholesterol 68 mg/dL (0-130); Potassium 3.8 mmoL/L (3.5-5.1); Sodium 142 mmol/L (136-145); Total Protein,Serum 7.5 gm/dL (6.4-8.2); Triglycerides 133 mg/dL (30-200); VLDL Cholesterol 27 mg/dL (0-40)
== END ==
PROVIDERS: Visit Provider Internal Medicine Adolescent Medicine
DX: I10 Essential (primary) hypertension (principal)
CPT/HCPCS: 36415; 80053; 80061; 85025

== ENCOUNTER 2018-12-06 14:30 | Outpatient (RCR) | payer MEDICARE, SELFPAY ==
--- NOTE | 2018-11-02 11:45 | HMH.OTOPEV ---
OT Inpatient Evaluation Rehab OT Outpatient Eval Start: 11/02/18 11:25 Freq: Status: Active Protocol: Document 11/02/18 11:26 TFRY (Rec: 11/02/18 11:45 TFRY [id number]) Electronically Signed By Shantel Sparrow OT 11/02/18 11:26 Outpatient Therapy Subjective History Subjective History This is a 77 year old right handed female referred to occupational therapy for right shoulder pain. Patient's throughout evaluation to assist with interpreting. Patient's ongoing for years but has just recently gotten worse. Chief Complaint Pain Symptom Type Ache Symptoms Relieved By Ice,OTC Meds Symptoms Aggravated By Physical Activity Prior Functional Limitations None Current Functional Limitations Sleeping Symptom Description Activity Dependent Level of pain today (0-10) 2 Pain scale - at its best (0-10) 2 Pain scale - at its worst (0-10) 7 Shoulder/Elbow Eval Shoulder Objective Measurements Palpation Tenderness tenderness shoulder exam standard right Shoulder Palpation Findings Tenderness Shoulder ROM Right Shoulder ROM Limitations Pain Shoulder Abduction Active Range of 90 Motion (degrees) Shoulder Flexion Active Range of Motion 90 (degrees) Query Text: Shoulder External Rotation Active Range 50 of Motion (degrees) Shoulder Internal Rotation Active Range 15 of Motion (degrees) pain with active ROM shoulder exam right standard decreased ROM shoulder exam standard right Shoulder MMT Shoulder Abduction Strength Grade 3 Fair Shoulder Extension Strength Grade 4- Good- Shoulder Flexion Strength Grade 3+ Fair+ Shoulder Horizontal Abduction Strength 3 Fair Grade Shoulder Horizontal Adduction Strength 3+ Fair+ Grade Shoulder External Rotation Strength 3+ Fair+ Grade Shoulder Internal Rotation Strength 3 Fair Grade Shoulder Strength Patient Testing Sitting Position Shoulder Special Tests Shoulder Empty Can (Supraspinatus) Test Negative Right Shoulder Goff-Johnie Impingement Negative Right Test Elbow Objective Measurements OT Outpatient Assessment Impairments Problems/Impairments Palpation Tenderness,Impaired Range of Motion,Impaired Strength,Impaired Dressing, Subjec
== END 2018-12-06 14:35 | disposition home or self-care (01) ==
LOC: OT 14:30
PROVIDERS: Visit Provider Internal Medicine Adolescent Medicine
DX: M25.511 Pain in right shoulder (principal)
CPT/HCPCS: 97014; 97110; 97165; G0283

== ENCOUNTER → 2019-06-20 11:16 | Outpatient (CLI) | payer MEDICARE, SELFPAY ==
[2019-06-20 12:06] LABS: Basophils % 0.3 % (0.1-2.0); Eosinophils # 0.2 K/mm3 (0.0-0.4); Eosinophils % 2.3 % (0.1-12.0); Hematocrit 45.5 % (37.0-47.0); Hemoglobin 14.5 g/dL (12.2-16.2); Lymphocytes # 3.4 K/mm3 (0.7-4.5); Lymphocytes % 41.2 % (10-50); Mean Corpuscular HGB Conc 31.8 g/dL (31.8-35.4); Mean Corpuscular Hemoglobin 30.3 pg (27.0-31.2); Mean Corpuscular Volume 95.3 fl (81-99); Mean Platelet Volume 8.3 fl (7.4-10.4); Monocytes # 0.7 K/mm3 (0.1-1.0); Monocytes % 8.1 % (1.7-9.3); Neutrophils # 3.9 K/mm3 (1.8-7.8); Platelet Count 241 K/mm3 (142-424); Red Blood Count 4.77 M/mm3 (4.20-5.40); Red Cell Distribution Width 14.2 % (11.5-17.5); White Blood Count 8.1 K/mm3 (4.8-10.8)
[2019-06-20 15:10] LABS: Hemoglobin A1C 5.5 % (0.0-7.0)
[2019-06-20 16:00] LABS: Alanine Aminotransferase 24 U/L (12-78); Albumin Level 3.3 gm/dL (3.4-5.0); Albumin/Globulin Ratio 0.7 (1.1-1.8); Alkaline Phosphatase 113 U/L (46-116); Anion Gap 12.4 mEq/L (5-15); Aspartate Amino Transferase 16 U/L (15-37); Bilirubin,Total 0.4 mg/dL (0.2-1.0); Blood Urea Nitrogen 20 mg/dL (7-18); Calcium 9.1 mg/dL (8.5-10.1); Carbon Dioxide 29 mmol/L (21.0-32.0); Chloride 105 mmol/L (98-107); Chol/HDL Ratio 3.5 (1-3.5); Cholesterol 166 mg/dL (140-200); Creatinine,Serum 0.86 mg/dL (0.55-1.02); Estimated Glomerular Filt Rate 64 ml/min (>60); GFR (African American) 77 ML/MIN (>60); Globulin 4.7 gm/dl (1.3-3.2); Glucose 90 mg/dL (74-106); HDL Cholesterol 48 mg/dL (29-89); LDL Cholesterol 88 mg/dL (0-130); Potassium 4.4 mmoL/L (3.5-5.1); Sodium 142 mmol/L (136-145); Triglycerides 149 mg/dL (30-200); VLDL Cholesterol 30 mg/dL (0-40)
== END ==
PROVIDERS: Visit Provider Internal Medicine Adolescent Medicine
DX: I10 Essential (primary) hypertension (principal); Z79.899 Other long term (current) drug therapy
CPT/HCPCS: 36415; 80053; 80061; 83036; 85025

== ENCOUNTER → 2019-10-01 09:25 | Outpatient (CLI) | payer MEDICARE, SELFPAY ==
--- NOTE | 2019-10-01 09:30 | MM_ITS ---
PROCEDURE: MM DIG SCREENING MAMM BI W/CAD Digital Breast Tomosynthesis Included CLINICAL INDICATION: SCREENING There is no personal or family history of breast cancer. There has biopsy right breast for benign disease. COMPARISON: MAMMO SCREEN from 06/16/2016 [facility] MM Dig screening mamm BI w/CAD from 07/04/2017 [facility] MM Dig screening mamm BI w/CAD from 08/20/2018 TECHNIQUE: Standard CC and MLO images and 3D Tomosynthesis was obtained. R2 CAD reviewed. FINDINGS: Mild scattered fibroglandular densities are seen throughout both breasts. There is a biopsy clip right breast with minimal adjacent post biopsy scarring. There is a stable nodular density adjacent to the area of scarring unchanged from studies dating back through May 2016. Julio C images were reviewed. There is no suspicious lesion and no suspicious microcalcifications. There are couple of benign-appearing calcifications right breast. IMPRESSION: Fibrofatty parenchyma with no suspicious lesions seen BI-RAD Category: 2 Benign Finding(s) FOLLOW-UP: 1YR 1 Year Follow-up (A letter has been sent to the patient regarding results of the study.) Dictated by: Dr. Ethan Hood MD 10/02/2019 11:[address] Ethan Hood MD in [place] 10/02/2019 11:29
== END ==
PROVIDERS: PCP Internal Medicine Adolescent Medicine; Visit Provider Internal Medicine Adolescent Medicine
DX: Z12.31 Encounter for screening mammogram for malignant neoplasm of breast (principal)
CPT/HCPCS: 77063; 77067

== ENCOUNTER 2019-11-28 10:00 | Outpatient (RCR) | payer MEDICARE, SELFPAY ==
--- NOTE | 2019-09-23 11:24 | HMH.PTOPEV ---
PT Outpatient Evaluation Rehab PT Outpatient Evaluation Start: 09/23/19 10:59 Freq: Status: Active Protocol: Document 09/23/19 10:59 DHAVAL (Rec: 09/23/19 11:24 DHAVAL [id number]) Electronically Signed By Shawn Gonzalez, PT 09/23/19 10:59 Outpatient Therapy Subjective History Subjective History Pt reports h/o chronic neck pain (R>L sided pain) for ~1-2 yrs. Pt reports R sided neck pain will also radiate s/s into R UE, and SH blade area. Pt also reports intermittent L UT mm area pain. Chief Complaint Pain,Stiff,Weakness Symptom Type Ache,Sharp,Dull Symptoms Relieved By Rest/Positioning,Heat Symptoms Aggravated By Lifting Prior Functional Limitations Reaching,Lifting,Housework Current Functional Limitations Reaching,Lifting,Housework Symptom Description Constant but Variable Level of pain today (0-10) 10 Pain scale - at its best (0-10) 6 Pain scale - at its worst (0-10) 10 Cervical Eval Palpation Cervical Muscles R Cervical Paraspinal,L Cervical Paraspinal,R CT Junction,L CT Junction,R Upper Trapezius,L Upper Trapezius Cervical/Thoracic Palpation Findings Tenderness,Trigger Point, Muscle Guarding Posture Head/C-Spine Posture Sitting Position Flexed Head/C-Spine Posture Standing Position Flexed Flexibility Deficits Upper Trapezius Muscle Length (R) Moderate Tightness,(L) Moderate Tightness Levaetor Scapulae Muscle Length (R) Moderate Tightness,(L) Moderate Tightness Scalene Group Muscle Length (R) Moderate Tightness,(L) Moderate Tightness Passive Joint Mobility Cervical PIVM Dec: R OA L OA R AA L AA R C2/3 L C2/3 R C3/4 L C3/4 R C4/5 L C4/5 R C5/6 L C5/6 R C6/7 L C6/7 R C7/T1 L C7/T1 AROM Cervical Spine Extension Active Range of 0-10 Motion (degrees) Cervical Spine Flexion Active Range of 0-35 Motion (degrees)
== END 2019-11-28 10:05 | disposition home or self-care (01) ==
LOC: PT 10:00
PROVIDERS: PCP Internal Medicine Adolescent Medicine; Visit Provider Internal Medicine Adolescent Medicine
DX: S46.811A Strain of other muscles, fascia and tendons at shoulder and upper arm level, right arm, initial encounter (principal)
CPT/HCPCS: 20560; 97010; 97014; 97035; 97110; 97140; 97163; 97164; G0283

== ENCOUNTER → 2019-12-05 14:39 | Outpatient (CLI) | payer MEDICARE, SELFPAY ==
--- NOTE | 2019-12-05 14:43 | CT_ITS ---
PROCEDURE: CT CERVICAL SPINE WO CON CLINICAL INDICATION: CERVICAL RADICULOPATHY Neck pain COMPARISON: No exams were available for comparison TECHNIQUE: Axial images obtained with sagittal and coronal reformats. All CT scans at the facility use one or more dose reduction, viz: automated exposure control, ma/kV adjustment per patient size (including targeted exams where dose is matched to indication, i.e. head), or iterative reconstruction technique. Axial spiral CT scanning performed of the cervical spine beginning at the base of the skull and continuing to the upper T-spine. 3-D multiplanar reconstruction with 3-D manipulation of volumetric data set in image rendering was completed by the radiologist and/or technologist with the supervision of the radiologist on independent workstation. FINDINGS: There is normal alignment. No fracture or dislocation. No lytic or blastic change. There is multilevel cervical spondylosis. There are degenerative changes at the atlantooccipital joint C2-C3: Unremarkable. C3-C4: Mild degenerative disc disease with facet hypertrophic change and subcortical cystic change of the facets on the right. C4-C5: Degenerate disc disease with anterior osteophytes and mild uncovertebral hypertrophy with mild bilateral foraminal narrowing. C5-C6: Degenerate disc disease with anterior osteophytes and mild uncovertebral hypertrophy with mild bilateral foraminal narrowing left greater than right. C6-C7: Degenerate disc disease with anterior osteophytes and mild facet and uncovertebral hypertrophy with mild left foraminal narrowing. Lung apices are clear. There is heterogeneous density of the right lobe of the thyroid gland with a 13 mm hypodense nodule present. IMPRESSION: 1. Multilevel cervical spondylosis. Please see above for detailed description. 2. 13 mm hypodense nodule in the right lobe of the thyroid gland. Dictated by: Donte Marin MD 12/06/2019 14:03 Electronically signed by Donte Marin MD in [place] 12/06/2019 14:03
== END ==
PROVIDERS: PCP Internal Medicine Adolescent Medicine; Visit Provider Internal Medicine Adolescent Medicine
DX: M54.12 Radiculopathy, cervical region (principal)
CPT/HCPCS: 72125

== ENCOUNTER → 2020-06-01 08:25 | Outpatient (CLI) | payer MEDICARE, SELFPAY ==
[2020-06-01 08:55] LABS: Basophils % 0.5 % (0.1-2.0); Eosinophils # 0.4 K/mm3 (0.0-0.4); Eosinophils % 4.9 % (0.1-12.0); Hematocrit 47.2 % (37.0-47.0); Hemoglobin 15.4 g/dL (12.2-16.2); Lymphocytes # 3.1 K/mm3 (0.7-4.5); Lymphocytes % 43.6 % (10-50); Mean Corpuscular HGB Conc 32.6 g/dL (31.8-35.4); Mean Corpuscular Hemoglobin 30.9 pg (27.0-31.2); Mean Corpuscular Volume 94.6 fl (81-99); Monocytes # 0.5 K/mm3 (0.1-1.0); Monocytes % 6.5 % (1.7-9.3); Neutrophils # 3.2 K/mm3 (1.8-7.8); Neutrophils % 44.5 % (37.0-80.0); Platelet Count 263 K/mm3 (142-424); Red Blood Count 4.99 M/mm3 (4.20-5.40); Red Cell Distribution Width 15.4 % (11.5-17.5); White Blood Count 7.2 K/mm3 (4.8-10.8)
[2020-06-01 09:11] LABS: Hemoglobin A1C 5.4 % (4.0-6.0)
[2020-06-01 09:22] LABS: Chloride 106 mmol/L (98-107); Potassium 3.7 mmoL/L (3.5-5.1); Sodium 141 mmol/L (136-145)
[2020-06-01 09:24] LABS: Alanine Aminotransferase 17 U/L (12-78); Aspartate Amino Transferase 23 U/L (14-36); Blood Urea Nitrogen 12 mg/dl (7-17); Estimated Glomerular Filt Rate 97 ml/min (>60); GFR (African American) 117 ML/MIN (>60)
[2020-06-01 09:25] LABS: Albumin/Globulin Ratio 0.9 (1.1-1.8); Alkaline Phosphatase 115 U/L (38-126); Anion Gap 9.7 mEq/L (5-15); Bilirubin,Total 0.6 mg/dl (0.2-1.3); Calcium 9.1 mg/dl (8.4-10.2); Carbon Dioxide 29 mmol/L (22.0-30.0); Globulin 4.5 g/dL (1.3-3.2); Glucose 115 mg/dl (74-100); Total Protein,Serum 8.5 g/dl (6.3-8.2)
== END ==
PROVIDERS: Visit Provider Internal Medicine Adolescent Medicine
DX: R53.83 Other fatigue (principal); Z79.899 Other long term (current) drug therapy
CPT/HCPCS: 36415; 80053; 83036; 85025

== ENCOUNTER → 2020-09-23 10:17 | Outpatient (CLI) | payer MEDICARE, SELFPAY ==
--- NOTE | 2020-09-23 10:23 | XR_ITS ---
PROCEDURE: XR HIP RT 2-3V W/PELVIS CLINICAL INDICATION: RT hip pain COMPARISON: No exams were available for comparison FINDINGS: AP view of the pelvis shows bilateral hip hemiarthroplasty is in place. There is good alignment with no evidence of orthopedic complication. No acute fracture or dislocation. There are mild degenerative changes of the SI joints and there is degenerative disc disease in the lower lumbar spine.. IMPRESSION: Bilateral hip hemiarthroplasty with good alignment. Degenerative changes the SI joints and lower lumbar spine Dictated by: Donte Marin MD 09/23/2020 12:46 Donte Marin MD in [facility] 09/23/2020 12:46
== END ==
PROVIDERS: PCP Internal Medicine Adolescent Medicine; Visit Provider Orthopaedic Surgery
DX: M25.551 Pain in right hip (principal)
CPT/HCPCS: 73502

== ENCOUNTER 2020-10-26 14:00 | Outpatient (RCR) | payer MEDICARE, SELFPAY ==
--- NOTE | 2020-09-30 15:49 | HMH.PTOPEV ---
PT Outpatient Evaluation Rehab PT Outpatient Evaluation Start: 09/30/20 14:55 Freq: Status: Active Protocol: Document 09/30/20 14:55 DHAVAL (Rec: 09/30/20 15:49 DHAVAL [id number]) Electronically Signed By Shawn Gonzalez, PT 09/30/20 14:55 Outpatient Therapy Subjective History Subjective History Pt reports h/o chronic bilateral hip pain for ~ 6months. Pt reports L>R hip pain, lateral aspect (greater trochanter), improved recently w/'injection'. Pt reports L GRAY in 2005, R GRAY in 2014. Pt reports increased B hip pain with sidelying positioning, and prolonged standing/walking . Chief Complaint Pain,Stiff,Weakness Symptom Type Ache,Sharp,Dull Symptoms Relieved By Rest/Positioning,Ice, Prescription Meds Symptoms Aggravated By Standing,Walking Prior Functional Limitations Standing,Walking,Stairs Current Functional Limitations Standing,Walking,Stairs Symptom Description Constant but Variable Level of pain today (0-10) 5 Pain scale - at its best (0-10) 4 Pain scale - at its worst (0-10) 7 Hip/Knee Eval Gait Observation General Gait Pattern Observation Antalgic Gait,Wide Based Gait Assistive Device Assistive Devices Straight Cane Palpation Tenderness bilateral Knee Palpation Overall Comment 3/4 B PIRI, GRT TRO Hip Palpation Findings Tenderness MMT Hip Flexion Strength Grade 3+ Fair+ Hip Abduction Strength Grade 4- Good- Hip Adduction Strength Grade 4- Good- Hip Extension Strength Grade 3 Fair Hip External Rotation Strength Grade 4- Good- Hip Internal Rotation Strength Grade 4- Good- Knee Extension Strength Grade 4 Good Knee Flexion Strength Grade 4 Good ROM Hip Flexion w/Knee Flexed Passive Range 0-95 of Motion (degrees) Hip Flexion w/Knee Extended Passive 0-50 Range of Motion (degrees) Special Tests Hip Piriformis Test Positive Left,Positive Right Outpatient Therapy Assessment Impairments Problems/Impairmments Palpation Tenderness,Impaired Range of Motion,Impaired Strength,Impaired Gait Pattern ,Impaired Walking,Impaired Standing,Impaired Household Care,Subjective C/O Pain, Impaired Self Care/Self Management Prognosis Rehab Potential Good Clinical Impression C
== END 2020-10-26 14:05 | disposition home or self-care (01) ==
LOC: PT 14:00
PROVIDERS: PCP Internal Medicine Adolescent Medicine; Visit Provider Orthopaedic Surgery
DX: M70.72 Other bursitis of hip, left hip; M70.71 Other bursitis of hip, right hip
CPT/HCPCS: 97010; 97014; 97033; 97110; 97163; G0283

== ENCOUNTER → 2020-11-26 09:39 | Outpatient (CLI) | payer MEDICARE, SELFPAY ==
--- NOTE | 2020-11-26 09:44 | XR_ITS ---
PROCEDURE: XR KNEE LT 4V CLINICAL INDICATION: left knee pain COMPARISON: CR [id number] [id number]-RT from 03/21/2017 FINDINGS: Status post total knee replacement with good alignment. No acute findings apparent. No fracture or dislocation. No lytic or blastic change. IMPRESSION: Status post total knee replacement, no acute finding Dictated by: Donte Marin MD 11/26/2020 10:10 Donte Marin MD in [place] 11/26/2020 10:10
--- NOTE | 2020-11-26 09:44 | XR_ITS ---
PROCEDURE: XR HIP LT 2-3V W/PELVIS CLINICAL INDICATION: left hip pain COMPARISON: CR XR HIP RT 2-3V W/PELVIS from 09/23/2020 FINDINGS: There has been bilateral hip hemiarthroplasty placed. The acetabular cup of the left hemiarthroplasty is situated somewhat lateral with the lateral margin not flush with the acetabular roof.. There is no evidence of dislocation or fracture. No lytic or blastic change. IMPRESSION: No change with no acute finding. Status post bilateral hip hemiarthroplasty Dictated by: Donte Marin MD 11/26/2020 10:13 Donte Marin MD in [facility] 11/26/2020 10:13
== END ==
PROVIDERS: PCP Internal Medicine Adolescent Medicine; Visit Provider Orthopaedic Surgery
DX: M25.552 Pain in left hip (principal); M25.562 Pain in left knee
CPT/HCPCS: 73502; 73564

== ENCOUNTER → 2020-12-02 13:11 | Outpatient (CLI) | payer MEDICARE, SELFPAY ==
--- NOTE | 2020-12-02 13:14 | XR_ITS ---
PROCEDURE: XR KNEE RT 4V CLINICAL INDICATION: right knee pain COMPARISON: CR [id number] KNEE-3 VIEWS-RT from 03/21/2017 CR XR KNEE LT 4V from 11/26/2020 FINDINGS: No fracture or dislocation. No lytic or blastic change. There is normal mineralization. Status post total knee replacement with good alignment. No fracture or dislocation. No evidence of orthopedic complication. No lytic or blastic change. Minimal calcification is present in the suprapatellar region in the distal quadriceps area Other findings:None. IMPRESSION: No acute findings. Status post total knee replacement with good alignment and no acute finding Dictated by: Donte Marin MD 12/02/2020 14:14 Donte Marin MD in [place] 12/02/2020 14:14
== END ==
PROVIDERS: PCP Internal Medicine Adolescent Medicine; Visit Provider Orthopaedic Surgery
DX: M25.561 Pain in right knee (principal)
CPT/HCPCS: 73564

== ENCOUNTER → 2020-12-29 13:27 | Outpatient (CLI) | payer MEDICARE, SELFPAY ==
[2020-12-29 14:13] LABS: Basophils % 0.5 % (0.1-2.0); Eosinophils # 0.3 K/mm3 (0.0-0.4); Eosinophils % 2.9 % (0.1-12.0); Hematocrit 41.7 % (37.0-47.0); Hemoglobin 13.8 g/dL (12.2-16.2); Lymphocytes # 3.7 K/mm3 (0.7-4.5); Lymphocytes % 40.9 % (10-50); Mean Corpuscular HGB Conc 33.2 g/dL (31.8-35.4); Mean Corpuscular Hemoglobin 31.6 pg (27.0-31.2); Mean Corpuscular Volume 95.2 fl (81-99); Mean Platelet Volume 8.2 fl (7.4-10.4); Monocytes # 0.5 K/mm3 (0.1-1.0); Neutrophils # 4.5 K/mm3 (1.8-7.8); Neutrophils % 49.8 % (37.0-80.0); Platelet Count 220 K/mm3 (142-424); Red Blood Count 4.38 M/mm3 (4.20-5.40); Red Cell Distribution Width 14.8 % (11.5-17.5)
[2020-12-29 14:40] LABS: Chloride 105 mmol/L (98-107); Potassium 4.7 mmoL/L (3.5-5.1); Sodium 141 mmol/L (136-145)
[2020-12-29 14:43] LABS: Alanine Aminotransferase 17 U/L (12-78); Albumin Level 3.9 g/dl (3.5-5.0); Alkaline Phosphatase 101 U/L (38-126); Anion Gap 11.7 mEq/L (5-15); Aspartate Amino Transferase 23 U/L (14-36); Bilirubin,Total 0.4 mg/dl (0.2-1.3); Blood Urea Nitrogen 20 mg/dl (7-17); Carbon Dioxide 29 mmol/L (22.0-30.0); Cholesterol 166 mg/dl (140-200); Estimated Glomerular Filt Rate 60 ml/min (>60); GFR (African American) 73 ML/MIN (>60); Globulin 4.1 g/dL (1.3-3.2); Triglycerides 241 mg/dl (30-150); VLDL Cholesterol 48 mg/dL (0-40)
[2020-12-29 14:44] LABS: Calcium 9.1 mg/dl (8.4-10.2); Chol/HDL Ratio 3.5 (1-3.5); Glucose 98 mg/dl (74-100); HDL Cholesterol 48 mg/dl (40-60)
[2020-12-29 14:55] LABS: Direct LDL Cholesterol 77.42 mg/dL (100-129)
[2020-12-29 15:15] LABS: Thyroid Stimulating Hormone 1.21 uIU/mL (0.465-4.68)
== END ==
PROVIDERS: Visit Provider Internal Medicine Adolescent Medicine
DX: I10 Essential (primary) hypertension (principal)
CPT/HCPCS: 36415; 80053; 80061; 84443; 85025

== ENCOUNTER 2021-08-08 09:56 | Emergency (ER) | payer MEDICARE, SELFPAY ==
[2021-08-08 09:57] VITALS: BP 138/62; PULSE 61; RESP 18; TEMP 36.5; O2SAT 97; BMI 35.7
[2021-08-08 10:07] VITALS: BP 138/62; PULSE 61; O2SAT 97
--- NOTE | 2021-08-08 10:19 | PC.NURSE ---
RN triaged Pt is in room with family
[2021-08-08 10:30] VITALS: BP 134/65; PULSE 56; O2SAT 89; O2SAT 98
--- NOTE | 2021-08-08 10:30 | CT_ITS ---
PROCEDURE INFORMATION: Exam: CT Head Without Contrast Exam date and time: 08/08/2021 11:14 AM Age: 80 years old Clinical indication: Dizziness and other: Headache, tingling TECHNIQUE: Imaging protocol: Computed tomography of the head without contrast. Radiation optimization: All CT scans at this facility use at least one of these dose optimization techniques: automated exposure control; mA and/or kV adjustment per patient size (includes targeted exams where dose is matched to clinical indication); or iterative reconstruction. COMPARISON: BRAINWW MR head/brain wo/w con 11/16/2017 1:57 PM FINDINGS: Brain: There are low-attenuation foci in the periventricular and subcortical white matter of both hemispheres. This is a nonspecific finding which likely represents microangiopathic change in a patient of this age. There is no evidence of acute territorial infarction, hemorrhage, mass, mass effect, or midline shift. There are no abnormal intra-axial or extra-axial fluid collections. Cerebral ventricles: The sulci, cisterns, and ventricles are prominent, consistent with diffuse volume loss. Paranasal sinuses: There is a large retention cyst in the left maxillary sinus. Mastoid air cells: Visualized mastoid air cells are well aerated. Bones/joints: Unremarkable. No acute fracture. Soft tissues: Unremarkable. IMPRESSION: 1. No evidence of acute intracranial abnormality. 2. Non-specific white matter change and volume loss as described. 3. If there is strong clinical concern for acute intracranial abnormality, then an MRI examination of the brain should be considered for further evaluation. However, if there are no deficits on neurological exam, then follow-up imaging could be considered on a nonemergent outpatient basis as clinically warranted.
[2021-08-08 10:38] LABS: Basophils % 0.6 % (0.1-2.0); Eosinophils # 0.3 K/mm3 (0.0-0.4); Hematocrit 42.3 % (37.0-47.0); Hemoglobin 13.8 g/dL (12.2-16.2); Lymphocytes # 2.8 K/mm3 (0.7-4.5); Lymphocytes % 38.1 % (10-50); Mean Corpuscular HGB Conc 32.5 g/dL (31.8-35.4); Mean Corpuscular Volume 98.5 fl (81-99); Mean Platelet Volume 8.8 fl (7.4-10.4); Monocytes # 0.5 K/mm3 (0.1-1.0); Monocytes % 6.9 % (1.7-9.3); Neutrophils # 3.7 K/mm3 (1.8-7.8); Neutrophils % 50.5 % (37.0-80.0); Platelet Count 245 K/mm3 (142-424); Red Cell Distribution Width 14.3 % (11.5-17.5); White Blood Count 7.3 K/mm3 (4.8-10.8)
[2021-08-08 10:39] LABS: Chloride 107 mmol/L (98-107); Potassium 3.3 mmoL/L (3.5-5.1); Sodium 140 mmol/L (136-145)
[2021-08-08 10:42] LABS: Alanine Aminotransferase 22 U/L (12-78); Albumin Level 3.6 g/dl (3.5-5.0); Albumin/Globulin Ratio 0.9 (1.1-1.8); Alkaline Phosphatase 79 U/L (38-126); Anion Gap 9.3 mEq/L (5-15); Aspartate Amino Transferase 33 U/L (14-36); Bilirubin,Total 0.5 mg/dl (0.2-1.3); Blood Urea Nitrogen 15 mg/dl (7-17); Calcium 8.1 mg/dl (8.4-10.2); Carbon Dioxide 27 mmol/L (22.0-30.0); Creatinine Clearance Estimated 66 mL/min (50-200); Estimated Glomerular Filt Rate 81 ml/min (>60); GFR (African American) 98 ML/MIN (>60); Glucose 121 mg/dl (74-100); Total Protein,Serum 7.6 g/dl (6.3-8.2)
--- NOTE | 2021-08-08 10:44 | HMH.EDGENADL ---
ED Disposition Clinical Impression: Paresthesias Headache Qualifiers: Headache type: unspecified Headache chronicity pattern: acute headache Intractability: not intractable Qualified Code(s): R51.9 - Headache, unspecified Disposition: Home, Self-Care Condition on Discharge: Good Instructions: DI for Headache Additional Instructions: Follow-up with Dr. Morejon, call tomorrow to make appointment. Return to the emergency department if symptoms worsen. Referrals: Provider,Referral, [Primary Care Provider] - - Critical Care Critical Care Time: No Attestation: On 08/08/21, the high probability of a clinically significant, sudden or life threatening deterioration of the following system(s) required my full and direct attention, intervention and personal management. The time I documented below is in addition to time spent performing reported procedures but includes the following listed in this critical care notation. Medical Decision Making - Nelson Inquiry Pt receiving controlled substance: No Vital Signs: 08/08/21 09:57 08/08/21 10:07 08/08/21 10:30 Temperature 97.7 F Temperature Source Oral Pulse Rate 61 56 L Pulse Rate [Right Radial] 61 Respiratory Rate 18 Blood Pressure 138/62 134/65 Blood Pressure [Right Arm] 138/62 Blood Pressure Mean 79 Blood Pressure Mean [Right Arm] 87 Blood Pressure Source [Right Arm] Automatic Cuff Blood Pressure Position [Right Arm] Sitting 02 Sat by Pulse Oximetry 97 97 98 Oxygen Delivery Method Room Air 08/08/21 11:02 Temperature Temperature Source Pulse Rate Pulse Rate [Right Radial] Respiratory Rate Blood Pressure 141/62 H Blood Pressure [Right Arm] Blood Pressure Mean Blood Pressure Mean [Right Arm] Blood Pressure Source [Right Arm] Blood Pressure Position [Right Arm] 02 Sat by Pulse Oximetry 98 Oxygen Delivery Method - Lab Data Lab Results 08/08/21 10:05: WBC 7.3, RBC 4.30, Hgb 13.8, Hct 42.3, MCV 98.5, MCH 32.0 H, MCHC 32.5, RDW 14.3, Plt Count 245, MPV 8.8, Neut % (Auto) 50.5, Lymph % (Auto) 38.1, [place] % (Auto) 6.9, Eos % (Auto) 4.0, Baso % (Auto) 0.6, Neut # (Auto) 3.7, Lymph # (Auto) 2.8, [place] # (Auto) 0.5, Eos # (Auto) 0.3, Baso # (Auto) 0.0 08/08/21 10:05: Sodium 140, Potassium 3.3 L, Chloride 107, Carbon Dioxide 27, Anion Gap 9.3, BUN 15, Creatinine 0.70, Estimated Creat Clear 66, Estimated GFR 81, Est GFR ( Amer) 98, Glucose 121 H, Calcium 8.1 L, Total Bilirubin 0.5, AST 33, ALT 22, Alkaline Phosphatase 79, Total Protein 7.6, Albumin 3.6, Globulin 4.0 H, Albumin/Globulin Ratio 0.9 L Result diagrams: 08/08/21 10:05 08/08/21 10:05 Orders (Tests/Meds): ED MEDICATIONS Generic Name Dose Route Start Last Admin Trade Name Freq PRN Reason Stop Dose Admin Sodium Chloride 10 ml 08/08/21 10:30 Sodium Chloride 0.9% 10ml Flush Syringe IV 09/07/21 10:29 NEEDED PRN Maintain IV Site - CT Data CT Scan: Head Time Received: 11:[address] Reviewed: Yes: I have viewed the radiologist's interpretation Findings Narrative: PROCEDURE INFORMATION: Exam: CT Head Without Contrast Exam date and time: 08/08/2021 11:14 AM Age: 80 years old Clinical indication: Dizziness and other: Headache, tingling TECHNIQUE: Imaging protocol: Computed tomography of the head without contrast. Radiation optimization: All CT scans at this facility use at least one of these dose optimization techniques: automated exposure control; mA and/or kV adjustment per patient size (includes targeted exams where dose is matched to clinical indication); or iterative reconstruction. COMPARISON: BRAINWW MR head/brain wo/w con 11/16/2017 1:57 PM FINDINGS: Brain: There are low-attenuation foci in the periventricular and subcortical white matter of both hemispheres. This is a nonspecific finding which likely represents microangiopathic change in a patient of this age. There is no evidence of acute territo
[2021-08-08 11:02] VITALS: BP 141/62; O2SAT 98
[2021-08-08 12:36] VITALS: BP 142/67; PULSE 63; RESP 16; TEMP 36.5; O2SAT 97
== END 2021-08-08 12:37 | disposition home or self-care (01) ==
PROVIDERS: Emergency Provider Emergency Medicine
DX: R00.2 Palpitations (principal); R20.2 Paresthesia of skin; R51.9 Headache, unspecified; I10 Essential (primary) hypertension; K21.9 Gastro-esophageal reflux disease without esophagitis; I65.29 Occlusion and stenosis of unspecified carotid artery; H26.9 Unspecified cataract; Z86.718 Personal history of other venous thrombosis and embolism; Z79.51 Long term (current) use of inhaled steroids; Z79.899 Other long term (current) drug therapy; Z88.0 Allergy status to penicillin; Z88.6 Allergy status to analgesic agent; Z88.8 Allergy status to other drugs, medicaments and biological substances
CPT/HCPCS: 70450; 80053; 85025; 99284

== ENCOUNTER → 2021-09-21 15:59 | Outpatient (CLI) | payer MEDICARE, SELFPAY ==
--- NOTE | 2021-09-21 16:04 | XR_ITS ---
FINAL REPORT CLINICAL HISTORY: ACUTE LEFT ANKLE PAIN COMPARISON: 04/26/2018 FINDINGS: LEFT ANKLE Three views were obtained. There is no acute fracture or dislocation. Mild degenerative changes are present. There is a plantar calcaneal spur. Note is made of lateral soft tissue swelling. IMPRESSION: Lateral soft tissue swelling without acute osseous abnormality. Reviewed, Interpreted and Dictated by Darrel Zuluaga III, MD Transcribed by Judy Cabrera Authenticated by Darrel Zuluaga III, MD on 09/21/2021 04:47:01 PM [facility]
== END ==
PROVIDERS: PCP Internal Medicine Adolescent Medicine; Visit Provider Internal Medicine Adolescent Medicine
DX: M25.572 Pain in left ankle and joints of left foot (principal)
CPT/HCPCS: 73610

== ENCOUNTER → 2021-10-05 15:37 | Outpatient (CLI) | payer MEDICARE, SELFPAY ==
--- NOTE | 2021-10-05 15:43 | XR_ITS ---
FINAL REPORT CLINICAL HISTORY: LEFT ANTERIOR PAIN..fall COMPARISON: 11/26/2020 FINDINGS: LEFT KNEE Four views were obtained. There is no acute fracture or dislocation. Patient is status post knee arthroplasty. No soft tissue abnormality is identified. IMPRESSION: No acute process. Reviewed, Interpreted and Dictated by Darrel Zuluaga III, MD Transcribed by Judy Cabrera Authenticated by Darrel Zuluaga III, MD on 10/05/2021 04:25:13 PM [facility]
== END ==
PROVIDERS: PCP Internal Medicine Adolescent Medicine; Visit Provider Internal Medicine Adolescent Medicine
DX: M25.562 Pain in left knee (principal)
CPT/HCPCS: 73562

== ENCOUNTER 2021-12-07 11:00 | Outpatient (RCR) | payer MEDICARE, SELFPAY ==
--- NOTE | 2021-11-08 14:23 | HMH.PTOPWND ---
Rehab Outpt Wound Evaluation Rehab OP Wound Evaluation Start: 11/08/21 13:58 Freq: Status: Active Protocol: Document 11/08/21 14:15 PHORNE (Rec: 11/08/21 14:23 PHORNE [id number]) Electronically Signed By Kelton Gaviria, PT 11/08/21 14:15 Subjective/History History History Pt is 80 yof who presents with L LE pain and swelling ~ 3 mos S/P fall onto her L knee with significant hematoma. She had X-rays performed which show no fxs or problems with her TKA hardware. She reports less pain now, but remains tender to palpation in the L lower leg. She reports hx of B TKA and B GRAY. Subjective Subjective Currently pain is 2-3/10. Palpation tenderness is 3/4 L lower leg. Minimal 1+ pitting edema noted, some fibrotic edema appreciated throughout the L LE. Lymphedema Eval Classification of Lymphedema Secondary Lymphedema Yes Stemmer's sign Stemmer's Sign no Stage of Lymphedema Lymphedema stages Stage II (Pitting edema, increased fibrosis w/ decreased pitting) Skin Changes Dry Skin Yes Skin Folds Yes Discoloration of Skin Yes Other Changes Yes Pain Scale Pain Scale (0-10) 3 Affected Extremities Areas Affected by Lymphedema/Edema Left Lower Extremity Manual Lymphatic Drainage Treatment Area MLD Treatment Area Left Lower Extremity Wound Problems/Impairments Impairments Problems/Impairmments Palpation Tenderness,Impaired Endurance,Impaired Walking, Impaired Standing,Impaired Stair Climbing,Impaired Stepping on Uneven Surface, Impaired Recreational Activities,Increased Edema, Lymphedema Present,Subjective C/O Pain,Impaired Self Care/ Self Management Prognosis Rehab Potential Good Clinical Impression Consistent with Diagnosis Yes Short Term Goals Number of Weeks 2 Decreased Palpation Tenderness Yes: 2/4 Increase Ability to Stand Yes Decrease Edema Yes Decrease Subjective C/O Pain Yes: 2/10 Jennifer
== END 2021-12-07 11:05 | disposition home or self-care (01) ==
LOC: PT 11:00
PROVIDERS: PCP Internal Medicine Adolescent Medicine; Visit Provider Orthopaedic Surgery
DX: R60.0 Localized edema (principal)
CPT/HCPCS: 97140; 97162; 97760

== ENCOUNTER 2022-02-06 10:43 | Emergency (ER) | payer MEDICARE, SELFPAY ==
[2022-02-06 10:59] VITALS: BP 142/76; PULSE 66; RESP 18; TEMP 36.9; O2SAT 97; BMI 35.4
[2022-02-06 11:06] VITALS: BP 142/76; PULSE 66; RESP 18; TEMP 36.9; O2SAT 97; BMI 35.4
--- NOTE | 2022-02-06 11:20 | EXP.UTC ---
Discharge Plan Disposition Patient Disposition: Home, Self-Care Condition: Good Prescriptions Prescriptions: New acyclovir 400 mg tablet 400 mg PO TID 7 Days Qty: 21 0RF prednisone 20 mg tablet 20 mg PO BID Qty: 10 0RF Continued temazepam 15 mg capsule 15 mg PO HS fluticasone propionate [Flonase Allergy Relief] 50 mcg/actuation spray,suspension 2 spry INTRANASAL DAILY ciclopirox 8 % solution 1 applic topical DAILY 90 Days Qty: 6.6 3RF Rx Instructions: apply over previous coat; remove with alcohol every 7 days and file down nail gabapentin 300 mg capsule 300 mg PO BID indapamide 1.25 mg tablet 1.25 mg PO amlodipine 5 mg tablet 5 mg PO BID carvedilol 12.5 mg tablet 12.5 mg PO celecoxib 100 mg capsule 100 mg PO furosemide 40 mg tablet 40 mg PO Referrals Follow up/Referrals: Shawn Morejon MD [Primary Care Provider] - See instructions Clinical Impressions Clinical Impression: Shingles rash Instructions Patient Instructions: DI for Shingles, Herpes Zoster Vaccine, Shingles Print Language Print Language: Irish Discharge ED Provider: Cecille ([facility] [place] General Stated complaint: LT side back pain radiating to front Mode of Arrival: Ambulatory Source of Information: Patient and Relative Limitations: Language Barrier Time Seen by Provider: 02/06/22 11:31 Description of Symptoms (Recalled from Triage Doc. by RN): pt comes in with c/o left side back and flank pain with rash for 3 days. small blisters noted to back. HEENT Symptoms (Recalled from RN notes): No Resp Symptoms (Recalled from RN notes): No Skin Symptoms (Recalled from RN notes): Yes MS Symptoms (Recalled from RN notes): No Functional Status (Recalled from RN notes): n/a History of Present Illness Provider Complaint: 81 yr old female presents with c/o left side back and flank pain with rash for 3 days. small blisters noted to back. Onset (ago): day(s) Related Data Home Medications Medication Instructions Recorded Confirmed temazepam 15 mg capsule 15 mg PO HS sleep 08/09/17 02/06/22 fluticasone propionate 50 2 spry intranasal DAILY Allergy 08/11/17 10/22/21 mcg/actuation nasal symptoms spray,suspension (Flonase Allergy Relief) gabapentin 300 mg capsule 300 mg PO BID Pain 05/07/21 09/18/22 amlodipine 5 mg tablet 5 mg PO BID High blood pressure 10/22/21 10/22/21 carvedilol 12.5 mg tablet 12.5 mg PO 10/22/21 10/22/21 celecoxib 100 mg capsule 100 mg PO 10/22/21 10/22/21 furosemide 40 mg tablet 40 mg PO 10/22/21 10/22/21 indapamide 1.25 mg tablet 1.25 mg PO 10/22/21 10/22/21 Previous Rx's Medication Instructions Recorded ciclopirox 8 % topical solution 1 applic topical DAILY toenail 10/24/19 fungus 3 months #6.6 mL acyclovir 400 mg tablet 400 mg PO TID 7 days #21 tabs 02/06/22 prednisone 20 mg tablet 20 mg PO BID #10 tabs 02/06/22 Allergies Allergy/AdvReac Type Severity Reaction Status Date / Time losartan Allergy Mild Verified 02/06/22 11:09 acetaminophen [From TYLENOL] Allergy Unknown Unknown Verified 02/06/22 11:09 allergy reaction Penicillins [PENICILLINS] Allergy Unknown Unknown Verified 02/06/22 11:09 allergy reaction quinapril [From Accupril] Allergy Unknown Unknown Verified 02/06/22 11:09 allergy reaction valdecoxib [From BEXTRA] Allergy Unknown Unknown Verified 02/06/22 11:09 allergy reaction tizanidine Allergy Unknown Verified 02/06/22 11:09 allergy reaction Worker's Comp Is this a Worker's Comp case?: No PFSH PFSH Medical History , [employer]) Carotid artery stenosis Social History , [employer]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
[2022-02-06 11:33] VITALS: BP 142/76; PULSE 66; RESP 18; TEMP 36.9
== END 2022-02-06 11:44 | disposition home or self-care (01) ==
PROVIDERS: Emergency Provider Nurse Practitioner Family; PCP Internal Medicine Adolescent Medicine
DX: B02.9 Zoster without complications (principal)
CPT/HCPCS: 99212; G0463

== ENCOUNTER → 2022-05-25 09:00 | Outpatient (CLI) | payer MEDICARE, SELFPAY ==
--- NOTE | 2022-05-25 | CA_ITS ---
APPROVED REPORT EXAM: Comprehensive 2D, Doppler, and color-flow Echocardiogram Engagement Lead: Susanna Haines RVT Ht: 5 ft 3 in Wt: 220lbs BSA: 2.01 BP: 144/64 mmHg Indications: EDEMA,SOA,HTN 2D Dimensions LVOT 1.99 cm (M/F) 1.5-2.5 LA Volume 43.80 mL LA Volume Index 21.68 mL/m2 (M/F) 16-34 M-Mode Dimensions RVDd 2.28 cm (0.9-2.6) LA Diam 3.41 cm (1.9-4.0) LVDd 4.12 cm (3.5-5.7) Ao Diam 3.03 cm (2.0-3.7) LVDs 2.40 cm (3.5-5.7) IVSd 1.52 cm (0.6-1.1) PWd 0.68 cm (0.6-1.1) EF (Teich) 73.10% FS 41.70% EDV (Teich) 75.10 mL TAPSE 1.70 (<1.7) ESV (Teich) 20.20 mL LV Diastology E Decel Time 150.00 (160-240 msec) E/A Ratio 1.2 MED E' 6.50 (< 7 cm/sec) E'/MED E' Ratio 14.48 (>14) LAT E' 7.20 (<10 cm/sec) E/LAT E' Ratio 13.07 (>14) Aortic Valve AO Peak GR. 5.70 mmHg Mitral Valve MV E Max Isaak. 94.00 (40-130 cm/s) MV A Velocity 76.00 (40-130 cm/s) E/A Ratio 1.25 MV Decel. Time 150.00 (160-240 ms) MV PHT 44.00 ms Pulmonary Valve PV Peak Velocity 82.00 (50-150 cm/s) Tricuspid Valve TR P. Velocity 301.00 cm/s RAP Estimate 10.00 mmHg RVSP 46.20 mmHg Left Ventricle Left atrium is mildly enlarged, left ventricle is normal size mild concentric left ventricular hypertrophy, estimated ejection fraction 55% with no regional wall motion abnormality, grade 1 diastolic dysfunction seen without tissue Doppler evidence of raise left atrial pressure. Right Ventricle Right atrium and right ventricle are mildly enlarged with normal contractility. Aortic Valve Aortic valve is minimally thickened and calcified without aortic stenosis, there is mild aortic insufficiency. Mitral Valve Mitral valve is grossly normal, there is mild mitral regurgitation. Tricuspid Valve Tricuspid grossly normal, there is mild tricuspid regurgitation, calculated right ventricular systolic pressure is 40 mmHg. Pulmonic Valve Pulmonic valve is poorly visualized. Great Vessels Aortic root is normal size. Inferior vena cava is normal size with normal inspiratory collapse. Pericardium No significant pericardial effusion noted. Conclusion 1. Mild biatrial enlargement, normal left ventricular size mild concentric left ventricular hypertrophy, estimated ejection fraction 55% with no regional wall motion abnormality, grade 1 diastolic dysfunction seen without tissue Doppler evidence of raise left atrial pressure. 2. Mildly enlarged right ventricle with normal contractility. 3. Mild aortic, mitral and tricuspid regurgitation, calculated right ventricular systolic pressure is 40 mmHg. 4. No significant pericardial effusion. 5. Inferior vena cava is normal size with normal inspiratory collapse. Electronically signed by : Td De Santiago MD 05/25/2022 20:16:03
== END ==
PROVIDERS: PCP Nurse Practitioner Family; Visit Provider Nurse Practitioner Family
DX: R60.0 Localized edema (principal)
CPT/HCPCS: 93306

== ENCOUNTER → 2022-08-04 14:37 | Outpatient (CLI) | payer MEDICARE, SELFPAY ==
[2022-08-04 17:08] LABS: Blood Urea Nitrogen 13 mg/dl (7-17); Estimated Glomerular Filt Rate 96 ml/min (>60); GFR (African American) 116 ML/MIN (>60)
== END ==
PROVIDERS: PCP Nurse Practitioner Family; Visit Provider Nurse Practitioner Family
DX: Z01.812 Encounter for preprocedural laboratory examination (principal); Z01.89 Encounter for other specified special examinations
CPT/HCPCS: 36415; 82565; 84520

== ENCOUNTER → 2022-08-05 13:36 | Outpatient (CLI) | payer MEDICARE, SELFPAY ==
--- NOTE | 2022-08-05 13:40 | US_ITS ---
FINAL REPORT CLINICAL HISTORY: MASSIDE OF NECK FINDINGS: The right lobe measures 4.3 x 2.1 x 2.1 cm. The right lobe is enlarged. There is an isoechoic nodule measuring 16 x 16 x 13 mm consistent with TI-RADS category 3. The left lobe measures 3.5 x 1.2 x 1.4 cm. There is a solid, hyperechoic nodule measuring 5 x 4 x 4 mm consistent with TI-RADS category 3. The isthmus measures 0.30 cm. This is normal. IMPRESSION: Bilateral thyroid nodules as above. Recommend follow-up ultrasound in 6-12 months. Reviewed, Interpreted and Dictated by Darrel Zuluaga III, MD Transcribed by Judy Cabrera Authenticated and [facility]
== END ==
PROVIDERS: PCP Nurse Practitioner Family; Visit Provider Nurse Practitioner Family
DX: R22.1 Localized swelling, mass and lump, neck (principal)
CPT/HCPCS: 76536

== ENCOUNTER → 2022-08-10 12:40 | Outpatient (CLI) | payer MEDICARE, SELFPAY ==
--- NOTE | 2022-08-10 12:46 | CT_ITS ---
FINAL REPORT TECHNIQUE: Multiple axial CT sections were performed from the foramen magnum to the vertex. Coronal reformatted images were also obtained. Precontrast and postcontrast injection images were obtained. This study was performed with technique to keep radiation doses as low as reasonably achievable, (ALARA). Individualized dose reduction techniques using automated exposure control or adjustment of mA and/or kV according to the patient size were employed. CLINICAL HISTORY: ANESTHEISA OF SKIN,PARESYTHESIA OF SKIN COMPARISON: 08/08/2021 FINDINGS: There is mild atrophy. The ventricles are normal in size. There is no evidence of hemorrhage. There is physiologic calcification of the basal ganglia. No extra-axial fluid collection is seen. There is complete opacification of the left maxillary sinus consistent with chronic sinusitis. No osseous abnormality is seen on the bone window images. Postcontrast images demonstrate no abnormal enhancement. IMPRESSION: Unremarkable CT of the head with and without contrast. Chronic left maxillary sinusitis. Reviewed, Interpreted and Dictated by Gildardo Spain MD Transcribed by Judy Cabrera Authenticated and [facility]
== END ==
PROVIDERS: PCP Nurse Practitioner Family; Visit Provider Nurse Practitioner Family
DX: R20.0 Anesthesia of skin (principal); R20.2 Paresthesia of skin
CPT/HCPCS: 70470; Q9966

== ENCOUNTER 2022-08-27 17:24 | Emergency (ER) | payer MEDICARE, SELFPAY ==
[2022-08-27 17:32] VITALS: BP 169/73; PULSE 76; RESP 18; TEMP 36.9; O2SAT 96; BMI 35.6
--- NOTE | 2022-08-27 18:20 | EXP.UTC ---
Discharge Plan Disposition Patient Disposition: Home, Self-Care Condition: Good Prescriptions Prescriptions: New benzonatate [benzonatate] 100 mg capsule 100 mg PO TIDP PRN (Reason: Cough) Qty: 30 0RF methylprednisolone 4 mg Tablets,Dose Pack 4 mg PO DIRECTED Qty: 21 0RF cefdinir 300 mg capsule 300 mg PO BID Qty: 20 0RF No Action temazepam 15 mg capsule 15 mg PO HS fluticasone propionate [Flonase Allergy Relief] 50 mcg/actuation spray,suspension 2 spry INTRANASAL DAILY ciclopirox 8 % solution 1 applic topical DAILY 90 Days Qty: 6.6 3RF Rx Instructions: apply over previous coat; remove with alcohol every 7 days and file down nail gabapentin 300 mg capsule 300 mg PO BID indapamide 1.25 mg tablet 1.25 mg PO amlodipine 5 mg tablet 5 mg PO BID carvedilol 12.5 mg tablet 12.5 mg PO celecoxib 100 mg capsule 100 mg PO furosemide 40 mg tablet 40 mg PO acyclovir 400 mg tablet 400 mg PO TID 7 Days Qty: 21 0RF prednisone 20 mg tablet 20 mg PO BID Qty: 10 0RF Referrals Follow up/Referrals: Samanta Blunt APRN [Primary Care Provider] - See instructions Activity Restrictions/Add. Instructions Additional Instructions/Restrictions: Take tylenol for pain or fever. Take the medications as directed. Take the cefdinir in the place of the levaquin that you were prescribed earlier. Follow up with your regular doctor. GO TO THE ER FOR ANY WORSENING SYMPTOMS Clinical Impressions Clinical Impression: Acute bronchitis Instructions Patient Instructions: Acute Bronchitis, DI for Acute Bronchitis Discharge ED Provider: Shawn Owens [facility] General Stated complaint: cough, lung pain, body aches Mode of Arrival: Ambulatory Source of Information: Patient and Spouse Limitations: No Limitations Time Seen by Provider: 08/27/22 18:20 History of Present Illness Provider Complaint: Pt reports that she was seen by her pcp this morning for her cough and chest congestion. She states that she was told she was being treated for a lung infection . She was prescribed levaquin. She reports that she has not taken medication yet, because she looked it up and she is afraid that the levaquin may interact with her heart medications. This happened to her in the past with this medication and she is afraid to take it. She is requesting a different antibiotic. She reports that she has had a productive cough for approx 1 week. She states that her body hurts when she is coughing. She denies fever. Related Data Home Medications Medication Instructions Recorded Confirmed temazepam 15 mg capsule 15 mg PO HS sleep 08/09/17 02/06/22 fluticasone propionate 50 2 spry intranasal DAILY Allergy 08/11/17 10/22/21 mcg/actuation nasal symptoms spray,suspension (Flonase Allergy Relief) gabapentin 300 mg capsule 300 mg PO BID Pain 09/25/20 02/06/22 amlodipine 5 mg tablet 5 mg PO BID High blood pressure 10/22/21 10/22/21 carvedilol 12.5 mg tablet 12.5 mg PO 10/22/21 10/22/21 celecoxib 100 mg capsule 100 mg PO 10/22/21 10/22/21 furosemide 40 mg tablet 40 mg PO 10/22/21 10/22/21 indapamide 1.25 mg tablet 1.25 mg PO 10/22/21 10/22/21 Previous Rx's Medication Instructions Recorded ciclopirox 8 % topical solution 1 applic topical DAILY toenail 10/24/19 fungus 3 months #6.6 mL acyclovir 400 mg tablet 400 mg PO TID 7 days #21 tabs 02/06/22 prednisone 20 mg tablet 20 mg PO BID #10 tabs 02/06/22 benzonatate 100 mg capsule 100 mg PO TIDP PRN Cough #30 caps 08/27/22 cefdinir 300 mg capsule 300 mg PO BID #20 caps 08/27/22 methylprednisolone 4 mg tablets in 4 mg PO DIRECTED #21 tabs 08/27/22 a dose pack Allergies Allergy/AdvReac Type Severity Reaction Status Date / Time losartan Allergy Mild Verified 08/27/22 19:09 acetaminophen [From TYLENOL] Allergy Unknown Unknown Verified 08/27/22 19:09 allergy reaction Pen
[2022-08-27 18:40] VITALS: BP 169/73; PULSE 76; RESP 18; TEMP 36.9; O2SAT 96; BMI 35.6
[2022-08-27 19:10] VITALS: BP 169/73; PULSE 76; RESP 20; TEMP 36.9; O2SAT 96
== END 2022-08-27 19:10 | disposition home or self-care (01) ==
LOC: ER 17:43 → UTC 17:49
PROVIDERS: Emergency Provider Nurse Practitioner Family; PCP Nurse Practitioner Family
DX: J20.9 Acute bronchitis, unspecified (principal); I10 Essential (primary) hypertension; E78.5 Hyperlipidemia, unspecified
CPT/HCPCS: 99212; 99214; G0463

== ENCOUNTER → 2022-09-21 10:35 | Outpatient (CLI) | payer MEDICARE, SELFPAY ==
--- NOTE | 2022-09-21 10:42 | XR_ITS ---
FINAL REPORT CLINICAL HISTORY: fell & having wrist pain FINDINGS: Left wrist Three views were obtained. There is no acute fracture or dislocation. There are moderate hypertrophic changes at the basilar joint. No soft tissue abnormality is identified. IMPRESSION: Moderate degenerative changes. Reviewed, Interpreted and Dictated by Gildardo Spain MD Transcribed by Judy Cabrera Authenticated and [facility]
== END ==
PROVIDERS: PCP Internal Medicine Adolescent Medicine; Visit Provider Orthopaedic Surgery
DX: M25.532 Pain in left wrist (principal)
CPT/HCPCS: 73110

== ENCOUNTER 2022-09-23 13:07 | Outpatient (RCR) | payer MEDICARE, SELFPAY | END 2022-09-23 13:55 | disposition home or self-care (01) | LOC: OT 13:07 | PROVIDERS: Visit Provider Orthopaedic Surgery | DX: M25.532 Pain in left wrist (principal) | CPT/HCPCS: 97763 ==

== ENCOUNTER 2023-02-26 10:56 | Emergency (ER) | payer MEDICARE, SELFPAY ==
[2023-02-26 10:58] VITALS: BP 130/88; PULSE 59; RESP 18; TEMP 36.9; O2SAT 94; BMI 34.7
--- NOTE | 2023-02-26 11:20 | EXP.UTC ---
Discharge Plan Disposition Patient Disposition: Home, Self-Care Condition: Good Prescriptions Prescriptions: New azithromycin [Zithromax] 250 mg tablet 250 mg PO UD DOSE PK Qty: 6 0RF Rx Instructions: Take two (2) tablets today, then one (1) tablet days #2 thru #5 benzonatate [benzonatate] 100 mg capsule 100 mg PO TIDP PRN (Reason: Cough) Qty: 30 0RF ondansetron 4 mg Tablet,Disintegrating 4 mg PO Q8H PRN (Reason: Nausea) Qty: 12 0RF No Action temazepam 15 mg capsule 15 mg PO HS fluticasone propionate [Flonase Allergy Relief] 50 mcg/actuation spray,suspension 2 spry INTRANASAL DAILY gabapentin 300 mg capsule 300 mg PO BID amlodipine 5 mg tablet 5 mg PO BID carvedilol 12.5 mg tablet 12.5 mg PO DAILY furosemide 40 mg tablet 20 mg PO DAILY Referrals Follow up/Referrals: Nader May MD [Primary Care Provider] - See instructions Activity Restrictions/Add. Instructions Additional Instructions/Restrictions: Take tylenol for pain or fever. Take the medications as directed. Follow up with your regular doctor. GO TO THE ER FOR ANY WORSENING SYMPTOMS Clinical Impressions Clinical Impression: Pharyngitis, Acute viral syndrome Instructions Patient Instructions: Sore Throat, DI for Pharyngitis/Tonsillopharyngitis -- Adult, DI for Viral Syndrome Discharge ED Provider: Shawn Owens [facility] General Stated complaint: cough, congestion diarrhea Time Seen by Provider: 02/26/23 11:20 History of Present Illness Provider Complaint: She states that for the past 4 days she has had sore throat, chills, low grade fever, a dry cough and malaise. Related Data Home Medications Medication Instructions Recorded Confirmed temazepam 15 mg capsule 15 mg PO HS sleep 08/09/17 02/26/23 fluticasone propionate 50 2 spry intranasal DAILY Allergy 08/11/17 12/02/22 mcg/actuation nasal symptoms spray,suspension (Flonase Allergy Relief) gabapentin 300 mg capsule 300 mg PO BID Pain 09/25/20 02/26/23 amlodipine 5 mg tablet 5 mg PO BID High blood pressure 10/22/21 02/26/23 carvedilol 12.5 mg tablet 12.5 mg PO DAILY 10/22/21 02/26/23 furosemide 40 mg tablet 20 mg PO DAILY 10/22/21 02/26/23 Previous Rx's Medication Instructions Recorded azithromycin 250 mg tablet 250 mg PO UD DOSE PK #6 tabs 02/26/23 (Zithromax) benzonatate 100 mg capsule 100 mg PO TIDP PRN Cough #30 caps 02/26/23 ondansetron 4 mg disintegrating 4 mg PO Q8H PRN Nausea #12 tabs 02/26/23 tablet Allergies Allergy/AdvReac Type Severity Reaction Status Date / Time losartan Allergy Mild Verified 02/26/23 11:20 acetaminophen [From TYLENOL] Allergy Unknown Unknown Verified 02/26/23 11:20 allergy reaction Penicillins [PENICILLINS] Allergy Unknown Unknown Verified 02/26/23 11:20 allergy reaction quinapril [From Accupril] Allergy Unknown Unknown Verified 02/26/23 11:20 allergy reaction valdecoxib [From BEXTRA] Allergy Unknown Unknown Verified 02/26/23 11:20 allergy reaction tizanidine Allergy Unknown Verified 02/26/23 11:20 allergy reaction PFSH PFSH Disclaimer: The information contained in this section may have been updated after the patient was seen, as this information can be updated by other users. Medical History Carotid artery stenosis Social History Smoking Status: Never smoker alcohol intake: never substance use type: denies use current occupational status: retired Travel in the last 8 weeks: Inside the [place] household members: spouse housing: house current occupational exposures/hazards: No caffeine: No ROS Obtained: Yes All systems reviewed & no additional complaints except as documented Constitutional Constitutional: Reports chills and Reports fever(s) Eyes Eyes: Denies eye d
[2023-02-26 11:38] LABS: UTC Strep Screen (Rapid) Negative (Negative)
[2023-02-26 11:53] VITALS: BP 130/88; PULSE 59; RESP 18; TEMP 36.9; O2SAT 94
[2023-02-26 12:39] LABS: Adenovirus,PCR Not Detected (NotDetected); Coronavirus 19, PCR Not Detected (NotDetected); Coronavirus 229E Not Detected (NotDetected); Coronavirus NL63 Not Detected (NotDetected); Coronavirus OC43 Not Detected (NotDetected); Coronovirus HKU1,PCR Not Detected (NotDetected); Human Metapneumovirus Not Detected (NotDetected); Influenza A, PCR Not Detected (NotDetected); Influenza AH1, 2009 Not Detected (NotDetected); Influenza AH1, PCR Not Detected (NotDetected); Influenza AH3,PCR Not Detected (NotDetected); Influenza B, PCR Not Detected (NotDetected); Parainfluenza 1, PCR Not Detected (NotDetected); Parainfluenza 2, PCR Not Detected (NotDetected); Parainfluenza 3, PCR Not Detected (NotDetected); Parainfluenza 4, PCR Not Detected (NotDetected); Respiratory Syncytial Virus Not Detected (NotDetected)
[2023-02-26 13:16] LABS: Rhinovirus/Enterovirus Detected (NotDetected)
== END 2023-02-26 11:53 | disposition home or self-care (01) ==
PROVIDERS: Emergency Provider Nurse Practitioner Family; PCP Internal Medicine Adolescent Medicine
DX: J02.9 Acute pharyngitis, unspecified (principal); B34.8 Other viral infections of unspecified site; R05.9 Cough, unspecified; R53.81 Other malaise; I65.29 Occlusion and stenosis of unspecified carotid artery; I10 Essential (primary) hypertension
CPT/HCPCS: 87632; 87635; 87880; 99212; 99214; G0463

== ENCOUNTER 2023-03-14 07:56 | Day surgery (SDC) | payer MEDICARE, SELFPAY ==
[2023-03-13 10:16] VITALS: BMI 36.1
[2023-03-14 09:28] VITALS: BP 121/64; PULSE 58; RESP 16; TEMP 36.2; O2SAT 96
[2023-03-14 09:58] VITALS: BP 140/87; PULSE 62; RESP 18; TEMP 36.3; O2SAT 100
[2023-03-14 10:17] VITALS: BP 140/87; PULSE 62; RESP 18; TEMP 36.3; O2SAT 100
== END 2023-03-14 10:18 | disposition home or self-care (01) ==
PROVIDERS: PCP Internal Medicine Adolescent Medicine; Visit Provider Ophthalmology
PROC: (CPT 66821; principal; 2023-03-14 09:30)
DX: H26.40 Unspecified secondary cataract (principal)
CPT/HCPCS: 66821

== ENCOUNTER → 2023-05-18 13:03 | Outpatient (CLI) | payer MEDICARE, SELFPAY ==
--- NOTE | 2023-05-18 13:08 | MM_ITS ---
PROCEDURE INFORMATION: Exam: MG Bilateral Screening 3D Mammography Exam date and time: 05/18/2023 1:10 PM Age: 82 years old Clinical indication: Screening mammogram TECHNIQUE: Imaging protocol: Bilateral Screening tomosynthesis and 2D mammography including computer-aided detection (CAD) when performed. COMPARISON: 1. MG MM DIG SCREENING MAMM BI W/CAD 10/01/2019 9:58 AM 2. MG SCBI MM Dig screening mamm BI w/CAD 08/20/2018 10:10 AM 3. MG SCBI MM Dig screening mamm BI w/CAD 07/04/2017 9:29 AM 4. MG MAMMO SCREEN 06/16/2016 1:07 PM FINDINGS: MAMMOGRAPHY: Breast composition: There are scattered areas of fibroglandular density. Mass: Stable benign-appearing subcentimeter nodules are present in the bilateral breasts. No new or morphologically suspicious nodule has developed to suggest malignancy. Architectural distortion: No new or suspicious architectural distortion. Calcifications: Stable benign-appearing calcifications are present. No new or suspicious cluster of microcalcifications have developed. Asymmetric density: No new or suspicious asymmetric density is present Skin thickening: None. Axillary adenopathy: None. IMPRESSION: No mammographic evidence of malignancy. Recommend annual screening mammography unless otherwise clinically indicated. ASSESSMENT: BI-RADS category 2: Benign
== END ==
LOC: RAD 13:04
PROVIDERS: PCP Internal Medicine Adolescent Medicine; Visit Provider Nurse Practitioner Family
DX: Z12.31 Encounter for screening mammogram for malignant neoplasm of breast (principal)
CPT/HCPCS: 77063; 77067

== ENCOUNTER 2023-12-14 11:05 | Outpatient (CLI) | payer MEDICARE, SELFPAY ==
--- NOTE | 2023-12-14 11:13 | XR_ITS ---
FINAL REPORT CLINICAL HISTORY: bilat hip pain COMPARISON: 12/06/2020 FINDINGS: Three views of the left hip demonstrate no acute fracture or dislocation. Patient is status post arthroplasty changes. No acute soft tissue abnormality is identified. IMPRESSION: No acute bony abnormality. Reviewed, Interpreted and Dictated by Fish Flores MD Transcribed by Judy Cabrera Authenticated and [facility]
--- NOTE | 2023-12-14 11:13 | XR_ITS ---
FINAL REPORT CLINICAL HISTORY: PAIN IN THE RIGHT AND THE LEFT HIP COMPARISON: 09/23/2020 FINDINGS: Three views demonstrate no acute fracture or dislocation. Patient is status post arthroplasty changes. No acute soft tissue abnormality is identified. IMPRESSION: No acute bony abnormality. Reviewed, Interpreted and Dictated by Fish Flores MD Transcribed by Judy Cabrera Authenticated and [facility]
== END 2023-12-14 23:59 | disposition home or self-care (01) ==
LOC: RAD 11:07
PROVIDERS: PCP Nurse Practitioner Family; Visit Provider Nurse Practitioner Family
DX: M25.551 Pain in right hip (principal); M25.552 Pain in left hip
CPT/HCPCS: 73502

== ENCOUNTER 2024-02-08 13:00 | Outpatient (CLI) | payer MEDICARE, SELFPAY ==
[2024-02-08 13:47] LABS: Basophils # 0.1 K/mm3 (0-0.2); Basophils % 0.5 % (0.1-2.0); Eosinophils # 0.1 K/mm3 (0.0-0.4); Eosinophils % 0.9 % (0.1-12.0); Hematocrit 41.9 % (37.0-47.0); Hemoglobin 13.2 g/dL (12.2-16.2); Lymphocytes # 2.3 K/mm3 (0.7-4.5); Lymphocytes % 23.2 % (10-50); Mean Corpuscular HGB Conc 31.5 g/dL (31.8-35.4); Mean Corpuscular Hemoglobin 31.1 pg (27.0-31.2); Mean Corpuscular Volume 98.7 fl (81-99); Mean Platelet Volume 8.7 fl (7.4-10.4); Monocytes # 0.7 K/mm3 (0.1-1.0); Monocytes % 6.8 % (1.7-9.3); Neutrophils # 6.7 K/mm3 (1.8-7.8); Neutrophils % 68.6 % (37.0-80.0); Platelet Count 225 K/mm3 (142-424); Red Blood Count 4.24 M/mm3 (4.20-5.40); Red Cell Distribution Width 14.8 % (11.5-17.5); White Blood Count 9.7 K/mm3 (4.8-10.8)
[2024-02-08 13:49] LABS: Alanine Aminotransferase 516 U/L (12-78); Albumin Level 3.1 g/dl (3.5-5.0); Albumin/Globulin Ratio 0.8 (1.1-1.8); Alkaline Phosphatase 136 U/L (38-126); Anion Gap 8.1 mEq/L (5-15); Aspartate Amino Transferase 165 U/L (14-36); Bilirubin,Total 0.4 mg/dl (0.2-1.3); Blood Urea Nitrogen 18 mg/dl (7-17); Calcium 9.2 mg/dl (8.4-10.2); Carbon Dioxide 26 mmol/L (22.0-30.0); Chloride 111 mmol/L (98-107); Estimated Glomerular Filt Rate 60 ml/min (>60); GFR (African American) 73 ML/MIN (>60); Globulin 3.7 g/dL (1.3-3.2); Glucose 111 mg/dl (74-100); Potassium 4.1 mmoL/L (3.5-5.1); Sodium 141 mmol/L (136-145); Total Protein,Serum 6.8 g/dl (6.3-8.2)
== END 2024-02-08 23:59 | disposition home or self-care (01) ==
PROVIDERS: PCP Nurse Practitioner Family; Visit Provider Nurse Practitioner Family
DX: R74.8 Abnormal levels of other serum enzymes (principal); D72.829 Elevated white blood cell count, unspecified
CPT/HCPCS: 36415; 80053; 85025

== ENCOUNTER 2024-02-16 06:29 | Outpatient (CLI) | payer MEDICARE, SELFPAY ==
--- NOTE | 2024-02-16 06:36 | CT_ITS ---
FINAL REPORT TECHNIQUE: Noncontrast CT exam of the abdomen and pelvis. This study was performed with techniques to keep radiation doses as low as reasonably achievable (ALARA). Individualized dose reduction techniques using automated exposure control or adjustment of mA and/or kV according to the patient''s size were employed. CLINICAL HISTORY: TRANSAMINITIS, ABD PAIN FINDINGS: Abdomen: Lung bases are clear. Liver, spleen, pancreas and adrenal glands have a normal CT appearance in their limited unenhanced state. There is no biliary ductal dilatation. Patient is status postcholecystectomy. There is a small supraumbilical hernia containing fat. The kidneys show no stone disease or obstruction. No obvious renal mass is present. No ureteral stones are present. Pelvis: No distal ureteral stones are seen. Bladder is unremarkable. No fluid collection or adenopathy is seen. The appendix is normal. There is mild sigmoid diverticulosis without evidence of diverticulitis. Patient is status post hysterectomy. IMPRESSION: No evidence of focal liver abnormality or biliary obstruction. Reviewed, Interpreted and Dictated by Fish Flores MD Transcribed by Jennifer Hennessy Authenticated and [facility]
== END 2024-02-16 23:59 | disposition home or self-care (01) ==
LOC: RAD 06:30
PROVIDERS: PCP Nurse Practitioner Family; Visit Provider Nurse Practitioner Family
DX: R74.01 Elevation of levels of liver transaminase levels (principal); R10.9 Unspecified abdominal pain
CPT/HCPCS: 74176

== ENCOUNTER 2024-03-19 14:34 | Emergency (ER) | payer MEDICARE, SELFPAY ==
--- NOTE | 2024-03-19 14:38 | EXP.UTC ---
Discharge Plan Disposition Patient Disposition: Home, Self-Care Condition: Good Prescriptions Prescriptions: New ondansetron 4 mg Tablet,Disintegrating 4 mg PO Q8H PRN (Reason: Nausea) Qty: 12 0RF famotidine 40 mg tablet 40 mg PO HS 30 Days Qty: 30 2RF No Action amlodipine 5 mg tablet 5 mg PO DAILY Patient Comments: TAKE 1 TABLET BY MOUTH IN THE MORNING AND AT NIGHT temazepam 15 mg capsule 15 mg PO DAILY gabapentin 300 mg capsule 300 mg PO DAILY Referrals Follow up/Referrals: Rasheeda Leung APRN [Primary Care Provider] - See instructions Activity Restrictions/Add. Instructions Additional Instructions/Restrictions: Drink plenty of fluids. Take tylenol for pain or fever. Take the medications as directed. Follow up with your regular doctor. GO TO THE ER FOR ANY WORSENING SYMPTOMS Clinical Impressions Clinical Impression: Gastritis, Gastroenteritis Instructions Patient Instructions: Gastritis, DI for Gastritis, Famotidine Print Language Print Language: Slovak Discharge ED Provider: Shawn Owens [facility] General Stated complaint: abd pain Time Seen by Provider: 03/19/24 14:38 History of Present Illness Provider Complaint: She states that for the past 1 day she has had epigastric pain with nausea/vomiting. She denies diarrhea. She denies any chest pain and shortness of breath. Related Data Home Medications ?Medication ?Instructions ?Recorded ?Confirmed amlodipine 5 mg tablet 5 mg PO DAILY 03/19/24 03/19/24 gabapentin 300 mg capsule 300 mg PO DAILY 03/19/24 03/19/24 temazepam 15 mg capsule 15 mg PO DAILY 03/19/24 03/19/24 Previous Rx's ?Medication ?Instructions ?Recorded famotidine 40 mg tablet 40 mg PO HS 30 days #30 tabs 03/19/24 ondansetron 4 mg disintegrating 4 mg PO Q8H PRN Nausea #12 tabs 03/19/24 tablet Allergies Allergy/AdvReac Type Severity Reaction Status Date / Time losartan Allergy Mild Verified 01/25/24 14:40 acetaminophen [From TYLENOL] Allergy Unknown Unknown Verified 01/25/24 14:40 allergy reaction Penicillins [PENICILLINS] Allergy Unknown Unknown Verified 01/25/24 14:40 allergy reaction quinapril [From Accupril] Allergy Unknown Unknown Verified 01/25/24 14:40 allergy reaction valdecoxib [From BEXTRA] Allergy Unknown Unknown Verified 01/25/24 14:40 allergy reaction tizanidine Allergy Unknown Verified 01/25/24 14:40 allergy reaction PFSH PFS Disclaimer: The information contained in this section may have been updated after the patient was seen, as this information can be updated by other users. Medical History Carotid artery stenosis Surgical History Hx of foot surgery bilateral History of right hip replacement History of left hip replacement History of knee replacement bilateral History of hysterectomy History of cholecystectomy Family History Other Colon cancer Family history of cancer Family history of diabetes mellitus type II Family history of hypertension Social History Smoking Status: Never smoker alcohol intake: never substance use type: denies use current occupational status: retired Travel in the last 8 weeks: Inside the [place] household members: spouse housing: house current occupational exposures/hazards: No caffeine: No ROS Obtained: Yes All systems reviewed & no additional complaints except as documented Constitutional Constitutional: Denies chills, Denies fever(s) and Reports poor appetite ENT Ears, Nose, Mouth, and Throat: Denies dizziness and Denies sore throat Cardiovascular Cardiovascular: Denies dyspnea Respiratory Respiratory: Denies chest congestion, Denies cough and Denies dyspnea Gastrointestinal Gastrointestingal: Reports as per HPI Genitourinary Female Genitourinary: Denies difficulty voiding, Denies dysuria, Denies hematuria, Denies urinary frequency, Denies urinary incontinence, Denies urinary hesitancy and Denies urinary urgency Musculoskeletal Musculoskeletal: Denies arthralgias Integumentary/Breasts Skin/Breast: Denies rash Neurologic Neurologic: Denies dizziness Physical Exam General General appearance: alert and in no apparent distress Head Head exam: atraumatic and normocephalic Eye Eye exam: Present normal appearance, PERRL and EOMI ENT ENT exam: Present normal exam, normal oropharynx, mucous membranes moist, TM's normal bilaterally and normal external ear exam Neck Neck exam: Present normal inspection, full ROM and trachea midline; Absent tenderness, meningismus or lymphadenopathy Chest Chest inspection: Present normal inspection and symmetric chest wall rise; Absent tenderness, rash or abscess Respiratory Respiratory exam: Present normal lung sounds bilaterally; Absent respiratory distress, wheezes or stridor Cardiovascular Cardiovascular exam: Present regular rate and normal rhythm; Absent irregular rhythm, systolic murmur, diastolic murmur or JVD Abdominal Exam Abdominal exam: Present soft and hyperactive bowel sounds; Absent distention, tenderness, guarding, rebound, rigidity, psoas sign, obturator sign, heel tap sign, Barlow's sign, Rovsing's sign or tenderness at McBurney's Point Extremities Exam Extremities exam: Present normal inspection and full ROM; Absent tenderness Back Exam Back exam: Present normal inspection and full ROM; Absent tenderness, CVA tenderness (R) or CVA tenderness (L) Neurological Exam Neurological exam: Present alert, oriented X3 and CN II-XII intact Psychiatric Psychiatric exam: Present normal affect and normal mood Skin Skin exam: Present warm, dry, intact and normal color Lymphatic Lymphatic Findings: no adenopathy Medical Decision Making Medical Records Medical records reviewed: No I reviewed the patient's medical records. Screening: Per USPSTF and CDC recommendations, given the prevalence of disease in our region, it is our hospital?s policy to screen for HIV and viral Hepatitis for all patients aged 18 and over and those with ongoing risk factors. Nelson Inquiry Pt receiving controlled substance: No Lab Data 03/19/24 15:15 03/19/24 15:15 Medical Decision Narrative: The GI cocktail relieved her pain. She denies any chest pain.
[2024-03-19 14:45] VITALS: BP 147/76; PULSE 75; RESP 18; TEMP 36.9; O2SAT 97; BMI 45.7
--- NOTE | 2024-03-19 15:07 | XR_ITS ---
PROCEDURE INFORMATION: Exam: XR Chest Exam date and time: 03/19/2024 3:11 PM Age: 83 years old Clinical indication: Cough and shortness of breath; Additional info: Cough, congestion TECHNIQUE: Imaging protocol: Radiologic exam of the chest. Views: 2 views. COMPARISON: No relevant prior studies available. FINDINGS: Lungs: Bibasilar atelectasis versus parenchymal scarring. Pleural spaces: Unremarkable. No pleural effusion. No pneumothorax. Heart/Mediastinum: Unremarkable. No cardiomegaly. Bones/joints: Unremarkable. IMPRESSION: No evidence of acute cardiopulmonary disease.
--- NOTE | 2024-03-19 15:08 | ECG_ITS ---
APPROVED REPORT Exam: Resting ECG HR:75 bpm ECG Measurements Heart Rate 75 AXES CO 209 P -79 QRSd 85 QRS -15 QT 402 T -18 QTc 431 Conclusion ECTOPIC ATRIAL RHYTHM WITH OCCASIONAL ECTOPIC PREMATURE COMPLEXES ST DEVIATION AND MODERATE T-WAVE ABNORMALITY, CONSIDER INFERIOR ISCHEMIA [-0.1+ mV T-WAVE IN II/aVF] ABNORMAL ECG UNCONFIRMED REPORT Electronically signed by : ERICK ATY, 03/21/2024 06:53:42
[2024-03-19] MEDS: BELLADONNA ALKALOIDS 60 ML ML PO (15:21)
[2024-03-19 15:29] LABS: Basophils % 0.5 % (0.1-2.0); Eosinophils # 0.2 K/mm3 (0.0-0.4); Eosinophils % 3.4 % (0.1-12.0); Hematocrit 42.1 % (37.0-47.0); Lymphocytes # 1.8 K/mm3 (0.7-4.5); Mean Corpuscular HGB Conc 33.3 g/dL (31.8-35.4); Mean Corpuscular Hemoglobin 31.5 pg (27.0-31.2); Mean Corpuscular Volume 94.5 fl (81-99); Mean Platelet Volume 7.9 fl (7.4-10.4); Monocytes # 0.5 K/mm3 (0.1-1.0); Monocytes % 9.8 % (1.7-9.3); Neutrophils # 2.3 K/mm3 (1.8-7.8); Neutrophils % 48.4 % (37.0-80.0); Platelet Count 214 K/mm3 (142-424); Red Blood Count 4.46 M/mm3 (4.20-5.40); Red Cell Distribution Width 15.2 % (11.5-17.5); White Blood Count 4.8 K/mm3 (4.8-10.8)
[2024-03-19 15:37] LABS: Albumin Level 3.7 g/dl (3.5-5.0); Chloride 109 mmol/L (98-107); Sodium 139 mmol/L (136-145)
[2024-03-19 15:38] LABS: Potassium 3.2 mmoL/L (3.5-5.1)
[2024-03-19 15:40] LABS: Alanine Aminotransferase 34 U/L (12-78); Albumin/Globulin Ratio 0.9 (1.1-1.8); Alkaline Phosphatase 98 U/L (38-126); Amylase 55 U/L (30-110); Anion Gap 11.2 mEq/L (5-15); Aspartate Amino Transferase 80 U/L (14-36); Bilirubin,Total 0.7 mg/dl (0.2-1.3); Blood Urea Nitrogen 9 mg/dl (7-17); Calcium 8.6 mg/dl (8.4-10.2); Carbon Dioxide 22 mmol/L (22.0-30.0); Creatinine Clearance Estimated 34 mL/min (50-200); Estimated Glomerular Filt Rate 96 ml/min (>60); GFR (African American) 116 ML/MIN (>60); Globulin 3.9 g/dL (1.3-3.2); Glucose 119 mg/dl (74-100); Lipase 57 U/L (23-300); Total Protein,Serum 7.6 g/dl (6.3-8.2)
[2024-03-19 16:26] VITALS: BP 147/76; PULSE 75; RESP 18; TEMP 36.9; O2SAT 97
== END 2024-03-19 16:29 | disposition home or self-care (01) ==
PROVIDERS: Emergency Provider Nurse Practitioner Family; PCP Nurse Practitioner Family
DX: K52.9 Noninfective gastroenteritis and colitis, unspecified (principal)
CPT/HCPCS: 71046; 80053; 82150; 83690; 85025; 93005; 99213; G0381

== ENCOUNTER 2024-06-13 10:08 | Outpatient (CLI) | payer MEDICARE, SELFPAY ==
--- NOTE | 2024-06-13 10:12 | MM_ITS ---
PROCEDURE INFORMATION: Exam: MG Bilateral Screening 3D Mammography Exam date and time: 06/13/2024 10:10 AM Age: 83 years old Clinical indication: Screening examination TECHNIQUE: Imaging protocol: Bilateral Screening tomosynthesis and 2D mammography including computer-aided detection (CAD) when performed. COMPARISON: 1. MG MM DIG SCREENING MAMM BI W/CAD 05/18/2023 1:10 PM 2. MG MM DIG SCREENING MAMM BI W/CAD 10/01/2019 9:58 AM FINDINGS: MAMMOGRAPHY: Breast composition: There are scattered areas of fibroglandular density. Mass: None. Architectural distortion: None. Calcifications: No suspicious calcifications. Asymmetric density: None. Skin thickening: None. Axillary adenopathy: None. IMPRESSION: No mammographic evidence of malignancy. Annual screening is recommended unless otherwise clinically indicated. ASSESSMENT: BI-RADS Category 1: Negative.
== END 2024-06-13 23:59 | disposition home or self-care (01) ==
LOC: RAD 10:08
PROVIDERS: PCP Nurse Practitioner Family; Visit Provider Nurse Practitioner Family
DX: Z12.31 Encounter for screening mammogram for malignant neoplasm of breast (principal)
CPT/HCPCS: 77063; 77067

== ENCOUNTER 2024-07-23 16:51 | Emergency (ER) | payer MEDICARE, SELFPAY ==
[2024-07-23 16:53] VITALS: BP 150/72; PULSE 71; RESP 17; TEMP 36.7; O2SAT 98; BMI 35.0
--- NOTE | 2024-07-23 16:55 | ED_ITS ---
<Statement entered by Pippa Dennis DO - 07/23/24 23:12> I was consulted by the KEYANNA, and we discussed the complexity of the problems being addressed. I approved the treatment and management plan for this patient's care in the emergency department, thus performing a substantive portion of the medical decision making. Pippa Dennis DO Discharge Plan Disposition Patient Disposition: Home, Self-Care Condition: Good Prescriptions Prescriptions: New sulfamethoxazole-trimethoprim [Bactrim DS] 800-160 mg tablet 1 tab PO BID 5 Days Qty: 10 0RF No Action amlodipine 5 mg tablet 5 mg PO DAILY Patient Comments: TAKE 1 TABLET BY MOUTH IN THE MORNING AND AT NIGHT temazepam 15 mg capsule 15 mg PO DAILY gabapentin 300 mg capsule 300 mg PO DAILY ondansetron 4 mg Tablet,Disintegrating 4 mg PO Q8H PRN (Reason: Nausea) Qty: 12 0RF famotidine 40 mg tablet 40 mg PO HS 30 Days Qty: 30 2RF Referrals Follow up/Referrals: Rasheeda Leung APRN [Primary Care Provider] - See instructions Activity Restrictions/Add. Instructions Additional Instructions/Restrictions: As we discussed I have started you on antibiotics. Please take it till it is gone. You need to follow-up with your PCP within 48 hours for recheck. If you have any worsening or new signs or symptoms return to the ER as needed. Clinical Impressions Clinical Impression: Cellulitis of skin of lip Instructions Patient Instructions: DI for Skin Abscess Print Language Print Language: Montenegrin Discharge ED Provider: Pippa Dennis General Adult HPI General Chief complaint: Skin/Abscess/Foreign Body Stated complaint: Swollen area on right side of face Time Seen by Provider: 07/23/24 16:55 History of Present Illness HPI narrative: Patient presents for evaluation of a swollen area on her right side of her lower lip. Patient noted a pimple right at the vermilion border this morning and she attempted to pop it by squeezing it. She only got a small amount of pus but since then it is continued to swell and is painful. She denies any difficulty with eating drinking swallowing and appears to be localized to the lip itself. She denies any fever chills hemoptysis hematochezia melena shortness of breath. Related Data Home Medications ?Medication ?Instructions ?Recorded ?Confirmed amlodipine 5 mg tablet 5 mg PO DAILY 03/19/24 04/09/24 gabapentin 300 mg capsule 300 mg PO DAILY 03/19/24 04/09/24 temazepam 15 mg capsule 15 mg PO DAILY 03/19/24 04/09/24 Previous Rx's ?Medication ?Instructions ?Recorded famotidine 40 mg tablet 40 mg PO HS 30 days #30 tabs 03/19/24 ondansetron 4 mg disintegrating 4 mg PO Q8H PRN Nausea #12 tabs 03/19/24 tablet sulfamethoxazole 800 1 tab PO BID 5 days #10 tabs 07/23/ mg-trimethoprim 160 mg tablet (Bactrim DS) Allergies Allergy/AdvReac Type Severity Reaction Status Date / Time losartan Allergy Mild Verified 04/09/24 13:42 acetaminophen (From TYLENOL) Allergy Unknown Unknown Verified 04/09/24 13:42 allergy reaction Penicillins (PENICILLINS) Allergy Unknown Unknown Verified 04/09/24 13:42 allergy reaction quinapril (From Accupril) Allergy Unknown Unknown Verified 04/09/24 13:42 allergy reaction valdecoxib (From BEXTRA) Allergy Unknown Unknown Verified 04/09/24 13:42 allergy reaction tizanidine Allergy Unknown Verified 04/09/24 13:42 allergy reaction PFSH PFSH Disclaimer: The information contained in this section may have been updated after the patient was seen, as this information can be updated by other users. Medical History Carotid artery stenosis Surgical History Hx of foot surgery bilateral History of right hip replacement History of left hip replacement History of knee replacement bilateral History of hysterectomy History of cholecystectomy Family History Other Colon cancer Family history of cancer Family history of diabetes mellitus type II Family history of hypertension Social History Smoking Status: Never smoker alcohol intake: never substance use type: denies use current occupational status: retired Travel in the last 8 weeks: Inside the [place] household members: spouse housing: house current occupational exposures/hazards: No caffeine: No Have you lived/traveled outside [place] in past 30 days?: No Contact w/someone who lives/traveled outside US past 30 days?: No Exposure to someone with infectious disease in past 14 days?: No Do you have a fever (greater than 100.4 F or 38 C)?: No Have you tested positive for COVID-19: No Exposed to someone with COVID-19 in past 14 days?: No Do you have a sore throat?: No Do you have a cough?: No Do you have any weakness?: No Do you have any diarrhea?: No Are you experiencing any unusual bleeding?: No Do you have any muscle aches/pain?: No Do you have any abdominal pain?: No Are you experiencing loss of taste or smell?: No Other Medical History Have you received the Flu Vaccine for this season: Yes Have you received the Pneumonia Vaccine: Yes ROS Obtained: Yes Systems reviewed as appropriate & no additional complaints except as documented Physical Exam General General appearance: alert and in no apparent distress Respiratory Respiratory exam: Present normal lung sounds bilaterally Cardiovascular Cardiovascular exam: Present regular rate Neurological Exam Neurological exam: Present alert and oriented X3 Medical Decision Making Medical Records Screening: Per USPSTF and CDC recommendations, given the prevalence of disease in our region, it is our hospital?s policy to screen for HIV and viral Hepatitis for all patients aged 18 and over and those with ongoing risk factors. Nelson Inquiry Pt receiving controlled substance: No Vital Signs: 07/23/24 16:53 07/23/24 17:35 Temperature 98.1 F 98.1 F Temperature Source Oral Oral Pulse Rate 80 Pulse Rate [Left] 71 Respiratory Rate 17 18 Blood Pressure 136/82 Blood Pressure [Left Arm] 150/72 H Blood Pressure Mean [Left Arm] 98 Blood Pressure Source [Left Arm] Automatic Cuff 02 Sat by Pulse Oximetry 98 Oxygen Delivery Method Room Air Room Air Orders (Tests/Meds): ED MEDICATIONS Discontinued Medications Generic Name Dose Route Start Last Admin Trade Name Freq PRN Reason Stop Dose Admin Trimethoprim/Sulfamethoxazole 1 each 07/23/24 17:08 07/23/24 17:30 Sulfa/Trimethoprim 1 Tablet PO 07/23/24 17:09 1 each ONCE ONE Administration Medical Decision Narrative: In summary patient is a 83-year-old female who presents to the emergency department for evaluation of lower lip problem. Patient is hemodynamically stable upon arrival, afebrile. Physical exam is remarkable for a ruptured comedone at the vermilion border of the lateral aspect of her left lower lip near the corner of her mouth but not in it. Palpation of the area reveals it is localized swelling with no fluctuance approximately half centimeter in diameter. Examination of the oral cavity reveals no extension into the gingival border or into the buccal recess patient has no palpable cervical lymphadenopathy or submental lymphadenopathy. Differential diagnosis includes cellulitis versus developing abscess although less likely there is no fluctuance. Initial workup was considered with labs and imaging the patient has no systemic symptoms and has no risk factors for any worsening signs or symptoms thus deferred.. Initial intervention were considered however patient has no other systemic symptoms no fever and has taken Tylenol Motrin thus deferred. Given this patient is appropriate for discharge with a prescription for Bactrim with first dose given here and strict return precautions. Patient to follow-up with PCP with in 48 hours for recheck. Critical Care Critical Care Time Critical Care Time: No
--- NOTE | 2024-07-23 17:03 | PC.NURSE ---
Malachi Bingham PAC at bedside
[2024-07-23] MEDS: SULFA/TRIMETHOPRIM 1 TABLET 1 EACH PO (17:30)
[2024-07-23 17:35] VITALS: BP 136/82; PULSE 80; RESP 18; TEMP 36.7; O2SAT 98
== END 2024-07-23 17:36 | disposition home or self-care (01) ==
PROVIDERS: Emergency Provider Emergency Medicine; PCP Nurse Practitioner Family
DX: K13.0 Diseases of lips (principal)
CPT/HCPCS: 99283